=== PATIENT | female | born 1985 | race African-American/Black ===

== ENCOUNTER 2017-04-14 08:03 | Inpatient (IN) | payer MEDICAID, OTHER ==
[2017-04-14] VITALS (8 sets, daily range): BP systolic 123–166; BP diastolic 65–107
[~2017-04-14] VITALS: Ht 157.5 cm; Wt 140.6 kg
[2017-04-14] MEDS ORDERED: ASPIRIN 81MG TABLET PO ONE (09:30)
[2017-04-14] MEDS ORDERED: NITROGLYCERIN OINT 1GM/INCH UDPKT TD ONE (09:30)
[2017-04-14 09:54] LABS: BASOPHILS % 0.3 % (0.0-2.0); HEMATOCRIT. 35.9 % (36.0-48.0); HEMOGLOBIN. 11.6 g/dL (12.0-16.0); LYMPHOCYTES % 21.6 % (20.0-50.0); MEAN CORPUSCULAR HEMOGLOBIN 26.1 pg (28.0-32.0); MEAN CORPUSCULAR VOLUME 80.7 fL (81.0-99.0); MONOCYTES % 5.8 % (2.0-8.0); NEUTROPHILS % 71.3 % (40.0-76.0); PLATELET 283 x1000/uL (130-400); RED BLOOD CELL COUNT 4.45 mill/uL (4.2-5.4); RED CELL DISTRIBUTION WIDTH 14.2 % (11.6-14.6)
[2017-04-14 10:02] LABS: PROTHROMBIN TIME 10.8 sec (9.4-11.6)
[2017-04-14 10:08] LABS: HCG SCREEN NEGATIVE
[2017-04-14 10:11] LABS: CARBON DIOXIDE 24 mEq/L (21-32); CHLORIDE 107 mEq/L (98-107); TROPONIN I 0.05 ng/mL (0.00-0.04)
[2017-04-14] MEDS ORDERED: SODIUM CHLORIDE 0.9% 1,000 ML IV ONE (10:30)
[2017-04-14] MEDS ORDERED: IODIXANOL 320MG/ML 100 ML BOTTLE IV ONE (10:58)
[2017-04-14] MEDS ORDERED: LIDOCAINE HCL 1% 20ML VIAL (Pyxis) INJ ONE (10:58)
[2017-04-14] MEDS ORDERED: MIDAZOLAM HCL 2 MG/2 ML VIAL ONE ×2 (11:11→12:01)
[2017-04-14] MEDS ORDERED: FENTANYL CITRATE/PF 50MCG/ML 2ML VIAL ONE (11:12)
[2017-04-14] MEDS ORDERED: IPRATROPIUM/ALBUTEROL 0.5-3(2.5)MG/3ML NEB INH PRN (11:15)
[2017-04-14] MEDS ORDERED: ONDANSETRON HCL 4MG/2ML VIAL IV PRN (11:15)
[2017-04-14] MEDS ORDERED: FUROSEMIDE 40MG/4ML VIAL ONE (11:49)
[2017-04-14] MEDS ORDERED: ATROPINE SULFATE 1MG/10ML SYR IV PRN (12:15)
[2017-04-14] MEDS ORDERED: ACETAMINOPHEN 325MG TABLET PO PRN (12:15)
[2017-04-14] MEDS ORDERED: NITROGLYCERIN 50MCG/ML 10ML VIAL (CATH LAB) IV ONE (14:38)
[2017-04-14] MEDS ORDERED: NICARDIPINE 100MCG/ML 10ML VIAL (CATH LAB) IV ONE (14:38)
[2017-04-14] MEDS ORDERED: HEPARIN SODIUM 1,000 UNIT/1ML VIAL IV ONE (14:38)
[2017-04-14 15:07] LABS: CLARITY URINE CLEAR (CLEAR); COLOR URINE YELLOW (YELLOW); GLUCOSE URINE NEGATIVE (NEGATIVE); KETONES URINE NEGATIVE (NEGATIVE); LEUKOCYTE ESTERASE URINE NEGATIVE (NEGATIVE); NITRITE URINE NEGATIVE (NEGATIVE); OCCULT BLOOD URINE 2+ (NEGATIVE); PH URINE 5.5 (4.5-8.0); PROTEIN URINE 4+ (NEGATIVE); UROBILINOGEN URINE 0.2 E.U./dL (0.2-1.0)
[2017-04-14 15:56] LABS: *AMPHETAMINES SCREEN URINE NEGATIVE (NEGATIVE); *BARBITURATES SCREEN URINE NEGATIVE (NEGATIVE); *BENZODIAZEPINES SCREEN URINE NEGATIVE (NEGATIVE); *COCAINE SCREEN URINE NEGATIVE (NEGATIVE); CANNABINOID URINE SCREEN NEGATIVE (NEGATIVE); METHADONE URINE SCREEN NEGATIVE (NEGATIVE); OPIATES URINE SCREEN NEGATIVE (NEGATIVE); PHENCYCLIDINE URINE SCREEN NEGATIVE (NEGATIVE)
[2017-04-14] MEDS ORDERED: CLONIDINE 0.1MG TABLET PO PRN (16:45)
[2017-04-14] MEDS ORDERED: CLONIDINE 0.1MG TABLET PO NR (16:45)
[2017-04-14 16:58] LABS: CREATINE KINASE MB FRACTION 2.3 ng/mL (0.5-3.6)
[2017-04-14] MEDS: ENTRESTO PO SCH (17:31)
[2017-04-14] MEDS: SODIUM CHLORIDE 0.45% 1,000 ML IV SCH (17:32)
[2017-04-14] MEDS ORDERED: ATORVASTATIN CALCIUM 20MG TABLET PO SCH (21:00)
[2017-04-14] MEDS: CARVEDILOL 25MG TABLET PO SCH (21:05)
[2017-04-15] VITALS (8 sets, daily range): BP systolic 116–137; BP diastolic 73–96
[2017-04-15] MEDS: SODIUM CHLORIDE 0.45% 1,000 ML IV SCH ×2 (00:32→06:12)
[2017-04-15 01:26] LABS: CREATINE KINASE MB FRACTION 2.6 ng/mL (0.5-3.6)
[2017-04-15] MEDS ORDERED: GLIPIZIDE 5MG TABLET PO SCH (06:50)
[2017-04-15 06:55] LABS: BASOPHILS % 0.3 % (0.0-2.0); EOSINOPHILS % 1.7 % (0.0-5.0); HEMATOCRIT. 36.1 % (36.0-48.0); HEMOGLOBIN. 11.5 g/dL (12.0-16.0); LYMPHOCYTES % 20.9 % (20.0-50.0); MEAN CORPUSCULAR VOLUME 81.3 fL (81.0-99.0); MEAN PLATELET VOLUME 9.7 fl (7.4-10.4); MONOCYTES % 7.7 % (2.0-8.0); NEUTROPHILS % 69.4 % (40.0-76.0); PLATELET 234 x1000/uL (130-400); RED BLOOD CELL COUNT 4.44 mill/uL (4.2-5.4); RED CELL DISTRIBUTION WIDTH 14.2 % (11.6-14.6)
[2017-04-15] MEDS ORDERED: FERROUS SULFATE 325MG TABLET PO SCH (07:20)
[2017-04-15] MEDS: CARVEDILOL 25MG TABLET PO SCH (08:42)
[2017-04-15] MEDS: ENTRESTO PO SCH (08:43)
[2017-04-15] MEDS ORDERED: LISINOPRIL 20MG TABLET PO SCH (09:00)
[2017-04-15] MEDS ORDERED: FUROSEMIDE 40MG/4ML VIAL IVP SCH (09:00)
[2017-04-15] MEDS ORDERED: ASPIRIN 81MG TABLET PO SCH (09:00)
[2017-04-16 15:09] LABS: ANTI-NUCLEAR ANTIBODIES DIRECT Negative (Negative)
[2017-04-17 06:11] LABS: COMPLEMENT C3 108 mg/dL (82-167)
== END 2017-04-15 16:35 | disposition home or self-care (01) | DRG 191 ==
LOC: ER 08:03 → ORIP 09:49 → EDBEDREQ 09:51 → 3WST 12:55
PROVIDERS: ADMIT Internal Medicine; ATTEND Internal Medicine
PROC: 4A023N7 Measurement of Cardiac Sampling and Pressure, Left Heart, Percutaneous Approach (ICD-10-PCS; principal; 2017-04-14)
PROC: B2111ZZ Fluoroscopy of Multiple Coronary Arteries using Low Osmolar Contrast (ICD-10-PCS; 2017-04-14)
DX: I25.110 Atherosclerotic heart disease of native coronary artery with unstable angina pectoris (principal); N17.0 Acute kidney failure with tubular necrosis; I13.2 Hypertensive heart and chronic kidney disease with heart failure and with stage 5 chronic kidney disease, or end stage renal disease; E46 Unspecified protein-calorie malnutrition; I42.0 Dilated cardiomyopathy; N18.6 End stage renal disease; E11.22 Type 2 diabetes mellitus with diabetic chronic kidney disease; Z68.43 Body mass index [BMI] 50.0-59.9, adult; E66.01 Morbid (severe) obesity due to excess calories; G35 Multiple sclerosis; I25.5 Ischemic cardiomyopathy; I50.40 Unspecified combined systolic (congestive) and diastolic (congestive) heart failure; E78.5 Hyperlipidemia, unspecified; K08.89 Other specified disorders of teeth and supporting structures; Z79.82 Long term (current) use of aspirin; Z86.32 Personal history of gestational diabetes; Z88.0 Allergy status to penicillin
CPT/HCPCS: 36415; 71010; 76770; 80048; 80053; 80061; 80305; 81001; 82550; 82553; 82570; 83735; 83880; 84156; 84443; 84484; 84703; 85025; 85610; 86038; 86160; 93005; 93306; 93458; 93970; 99285; A9505; C1769; C1887; C1893; J1644; J1940; J2250; J3010; J3490; J7030; Q9967

== ENCOUNTER 2018-08-31 09:22 | Inpatient (IN) | payer MEDICAID ==
[2018-08-31] VITALS (10 sets, daily range): BP systolic 156–178; BP diastolic 106–130
[~2018-08-31] VITALS: Ht 160 cm; Wt 167.4 kg
[2018-08-31 11:47] LABS: BASOPHILS % 0.6 % (0.0-2.0); EOSINOPHILS % 0.7 % (0.0-5.0); HEMATOCRIT. 42.2 % (36.0-48.0); HEMOGLOBIN. 13.6 g/dL (12.0-16.0); LYMPHOCYTES % 13.4 % (20.0-50.0); MEAN CORPUSCULAR HEMOGLOBIN 29.1 pg (28.0-32.0); MEAN CORPUSCULAR VOLUME 90.1 fL (81.0-99.0); MEAN PLATELET VOLUME 9.5 fl (7.4-10.4); MONOCYTES % 6.7 % (2.0-8.0); NEUTROPHILS % 78.6 % (40.0-76.0); PLATELET 229 x1000/uL (130-400); RED BLOOD CELL COUNT 4.69 mill/uL (4.2-5.4); RED CELL DISTRIBUTION WIDTH 16.5 % (11.6-14.6)
[2018-08-31 11:54] LABS: CHLORIDE 106 mEq/L (98-107)
[2018-08-31] MEDS ORDERED: CLINDAMYCIN 600 MG in DEXTROSE 5% WATER 50 ML IV SCH (12:00)
[2018-08-31 12:11] LABS: HCG SCREEN NEGATIVE
[2018-08-31 13:22] LABS: INR 1.1; PROTHROMBIN TIME 11.2 sec (9.1-11.1)
[2018-08-31] MEDS ORDERED: SODIUM BICARBONATE 4% (2.4MEQ) 5ML VIAL IV ONE (13:30)
[2018-08-31] MEDS ORDERED: LIDOCAINE HCL 1% 20ML VIAL (Pyxis) INJ ONE (13:30)
[2018-08-31] MEDS ORDERED: FENTANYL CITRATE/PF 50MCG/ML 2ML VIAL ONE (13:30)
[2018-08-31] MEDS ORDERED: MANNITOL 12.5G (25%) VIAL 50ML IV ONE (14:00)
[2018-08-31] MEDS ORDERED: DOCUSATE SODIUM 100MG CAPSULE PO PRN ×2 (14:30→20:15)
[2018-08-31] MEDS ORDERED: FENTANYL CITRATE/PF 50MCG/ML 2ML VIAL IV ONE (14:30)
[2018-08-31] MEDS ORDERED: ONDANSETRON HCL 4MG/2ML INJ IV PRN (14:30)
[2018-08-31 16:22] LABS: COLOR URINE YELLOW (YELLOW); KETONES URINE NEGATIVE (NEGATIVE); LEUKOCYTE ESTERASE URINE NEGATIVE (NEGATIVE); NITRITE URINE NEGATIVE (NEGATIVE); OCCULT BLOOD URINE 2+ (NEGATIVE); PROTEIN URINE 4+ (NEGATIVE); UROBILINOGEN URINE 0.2 E.U./dL (0.2-1.0)
[2018-08-31 16:24] LABS: CLARITY URINE SLIGHTLY HAZY (CLEAR)
[2018-08-31] MEDS ORDERED: CLONIDINE 0.1MG TABLET PO NR (23:00)
[2018-08-31] MEDS ORDERED: MAGNESIUM/ALUMINUM HYDROXIDE/SIMETHICONE 30ML UDC PO NR (23:00)
[2018-09-01] VITALS (10 sets, daily range): BP systolic 116–165; BP diastolic 59–116
[2018-09-01] MEDS ORDERED: DEXTROSE 50% WATER 50ML SYRINGE IV PRN (07:00)
[2018-09-01] MEDS ORDERED: GLIP5TAB12 PO (07:03)
[2018-09-01] MEDS ORDERED: SACU1TAB7 MT (07:03)
[2018-09-01 07:08] LABS: BASOPHILS % 0.5 % (0.0-2.0); HEMATOCRIT. 42.6 % (36.0-48.0); HEMOGLOBIN. 13.5 g/dL (12.0-16.0); LYMPHOCYTES % 16.6 % (20.0-50.0); MEAN CORPUSCULAR HEMOGLOBIN 28.8 pg (28.0-32.0); MEAN CORPUSCULAR VOLUME 90.8 fL (81.0-99.0); MEAN PLATELET VOLUME 9.4 fl (7.4-10.4); MONOCYTES % 8.8 % (2.0-8.0); NEUTROPHILS % 73.1 % (40.0-76.0); PLATELET 206 x1000/uL (130-400); RED CELL DISTRIBUTION WIDTH 16.7 % (11.6-14.6)
[2018-09-01] MEDS: BLOOD SUGAR DIAGNOSTIC STRIP TEST SCH ×3 (07:40→21:00)
[2018-09-01] MEDS ORDERED: COR25 PO (07:42)
[2018-09-01] MEDS ORDERED: MANNITOL 12.5G (25%) VIAL 50ML IV NR (08:00)
[2018-09-01 08:18] LABS: HEPATITIS B SURFACE ANTIGEN NEGATIVE
[2018-09-01] MEDS ORDERED: HEPARIN SODIUM 1,000 UNIT/1ML VIAL IV SCH (08:45)
[2018-09-01] MEDS: FOLIC ACID/VITAMIN B COMP W-C TABLET PO SCH (08:51)
[2018-09-01] MEDS: AMLODIPINE 5MG TABLET PO SCH (08:51)
[2018-09-01] MEDS: CARVEDILOL 25MG TABLET PO SCH ×2 (08:52→20:12)
[2018-09-01] MEDS: INSULIN LISPRO 100 UNITS/ML SUBCUT SCH ×3 (08:54→21:08)
[2018-09-01 10:31] LABS: PHOSPHORUS 3.6 mg/dL (2.5-4.9)
[2018-09-01] MEDS ORDERED: HEPARIN SODIUM 1,000 UNIT/1ML VIAL IV ONE (14:10)
[2018-09-01] MEDS ORDERED: LIDOCAINE HCL 1% 20ML VIAL (Pyxis) INJ ONE (14:20)
[2018-09-01] MEDS ORDERED: IODIXANOL 320MG/ML 200ML BOTTLE ONE (14:21)
[2018-09-01] MEDS ORDERED: MIDAZOLAM HCL 2 MG/2 ML VIAL ONE (14:49)
[2018-09-01] MEDS ORDERED: FENTANYL CITRATE/PF 50MCG/ML 2ML VIAL ONE (14:49)
[2018-09-01] MEDS ORDERED: IOHEXOL-300 100 ML BOTTLE ONE (15:10)
[2018-09-01 15:43] LABS: HEPATITIS B SURFACE AB < 3.1 mIU/mL
[2018-09-01] MEDS ORDERED: ACETAMINOPHEN 325MG TABLET PO PRN (15:45)
[2018-09-01] MEDS ORDERED: ONDANSETRON HCL 4MG/2ML INJ IV PRN (15:45)
[2018-09-01] MEDS ORDERED: ATROPINE SULFATE 1MG/10ML SYR IV PRN (15:45)
[2018-09-01 15:53] LABS: HEPATITIS B SURFACE ANTIGEN NEGATIVE
[2018-09-01 16:21] LABS: HEPATITIS A AB IGM NEGATIVE (NEGATIVE)
[2018-09-01] MEDS ORDERED: NIFEDIPINE XL 60MG TAB PO SCH (21:00)
[2018-09-02] VITALS (12 sets, daily range): BP systolic 114–149; BP diastolic 64–96
[2018-09-02] MEDS: BLOOD SUGAR DIAGNOSTIC STRIP TEST SCH ×4 (06:10→21:00)
[2018-09-02] MEDS: INSULIN LISPRO 100 UNITS/ML SUBCUT SCH ×4 (06:20→21:00)
[2018-09-02] MEDS ORDERED: MANNITOL 12.5G (25%) VIAL 50ML IV SCH (08:00)
[2018-09-02] MEDS ORDERED: ISOSORB DINIT/HYDRALAZINE HCL 20/37.5MG TABLET PO SCH (09:15)
[2018-09-02] MEDS: FOLIC ACID/VITAMIN B COMP W-C TABLET PO SCH (09:22)
[2018-09-02] MEDS: CARVEDILOL 25MG TABLET PO SCH ×2 (09:22→21:58)
[2018-09-02] MEDS: AMLODIPINE 5MG TABLET PO SCH (09:22)
[2018-09-02 10:27] LABS: BASOPHILS % 0.5 % (0.0-2.0); HEMATOCRIT. 38.8 % (36.0-48.0); HEMOGLOBIN. 12.5 g/dL (12.0-16.0); MEAN PLATELET VOLUME 9.1 fl (7.4-10.4); MONOCYTES % 7.5 % (2.0-8.0); PLATELET 166 x1000/uL (130-400); RED BLOOD CELL COUNT 4.31 mill/uL (4.2-5.4); RED CELL DISTRIBUTION WIDTH 16.5 % (11.6-14.6)
[2018-09-02] MEDS: ISOSORB DINIT/HYDRALAZINE HCL 20/37.5MG TABLET PO SCH ×2 (14:00→21:58)
[2018-09-03] VITALS (12 sets, daily range): BP systolic 106–154; BP diastolic 68–115
[2018-09-03] MEDS: ISOSORB DINIT/HYDRALAZINE HCL 20/37.5MG TABLET PO SCH ×3 (06:07→22:38)
[2018-09-03] MEDS: BLOOD SUGAR DIAGNOSTIC STRIP TEST SCH ×4 (06:08→21:03)
[2018-09-03] MEDS: INSULIN LISPRO 100 UNITS/ML SUBCUT SCH ×4 (06:23→21:19)
[2018-09-03 07:48] LABS: BASOPHILS % 0.6 % (0.0-2.0); EOSINOPHILS % 1.6 % (0.0-5.0); HEMATOCRIT. 38.5 % (36.0-48.0); HEMOGLOBIN. 12.3 g/dL (12.0-16.0); MEAN CORPUSCULAR HEMOGLOBIN 28.7 pg (28.0-32.0); MEAN CORPUSCULAR VOLUME 89.6 fL (81.0-99.0); MONOCYTES % 9.3 % (2.0-8.0); NEUTROPHILS % 72.5 % (40.0-76.0); PLATELET 179 x1000/uL (130-400); RED CELL DISTRIBUTION WIDTH 16.2 % (11.6-14.6)
[2018-09-03] MEDS: AMLODIPINE 5MG TABLET PO SCH ×2 (09:00→21:22)
[2018-09-03] MEDS: CARVEDILOL 25MG TABLET PO SCH ×2 (09:00→21:23)
[2018-09-03] MEDS: FOLIC ACID/VITAMIN B COMP W-C TABLET PO SCH (09:16)
[2018-09-03] MEDS ORDERED: HEPARIN SODIUM 1,000 UNIT/1ML VIAL IV SCH (15:45)
[2018-09-03] MEDS ORDERED: HEPARIN SODIUM 1,000 UNIT/1ML VIAL IV NR (17:15)
[2018-09-04] VITALS (12 sets, daily range): BP systolic 119–150; BP diastolic 52–104
[2018-09-04] MEDS: ISOSORB DINIT/HYDRALAZINE HCL 20/37.5MG TABLET PO SCH ×3 (06:23→22:25)
[2018-09-04] MEDS: BLOOD SUGAR DIAGNOSTIC STRIP TEST SCH ×4 (07:03→21:13)
[2018-09-04 07:07] LABS: BASOPHILS % 0.5 % (0.0-2.0); EOSINOPHILS % 1.3 % (0.0-5.0); HEMATOCRIT. 38.9 % (36.0-48.0); HEMOGLOBIN. 12.4 g/dL (12.0-16.0); LYMPHOCYTES % 15.2 % (20.0-50.0); MEAN CORPUSCULAR HEMOGLOBIN 28.5 pg (28.0-32.0); MEAN CORPUSCULAR VOLUME 89.4 fL (81.0-99.0); MEAN PLATELET VOLUME 9.2 fl (7.4-10.4); MONOCYTES % 11.4 % (2.0-8.0); NEUTROPHILS % 71.6 % (40.0-76.0); PLATELET 176 x1000/uL (130-400); RED BLOOD CELL COUNT 4.36 mill/uL (4.2-5.4); RED CELL DISTRIBUTION WIDTH 16.3 % (11.6-14.6)
[2018-09-04] MEDS: INSULIN LISPRO 100 UNITS/ML SUBCUT SCH ×4 (07:20→21:20)
[2018-09-04] MEDS: FOLIC ACID/VITAMIN B COMP W-C TABLET PO SCH (08:33)
[2018-09-04] MEDS: AMLODIPINE 5MG TABLET PO SCH ×2 (08:34→21:22)
[2018-09-04] MEDS: CARVEDILOL 25MG TABLET PO SCH ×2 (08:34→21:22)
[2018-09-05] VITALS (8 sets, daily range): BP systolic 115–147; BP diastolic 63–100
[2018-09-05] MEDS: ISOSORB DINIT/HYDRALAZINE HCL 20/37.5MG TABLET PO SCH ×3 (06:33→21:24)
[2018-09-05 06:49] LABS: BASOPHILS % 0.5 % (0.0-2.0); EOSINOPHILS % 1.4 % (0.0-5.0); HEMATOCRIT. 38.3 % (36.0-48.0); HEMOGLOBIN. 12.3 g/dL (12.0-16.0); LYMPHOCYTES % 14.6 % (20.0-50.0); MEAN CORPUSCULAR HEMOGLOBIN 28.7 pg (28.0-32.0); MEAN CORPUSCULAR VOLUME 89.4 fL (81.0-99.0); MEAN PLATELET VOLUME 9.2 fl (7.4-10.4); MONOCYTES % 9.7 % (2.0-8.0); NEUTROPHILS % 73.8 % (40.0-76.0); PLATELET 181 x1000/uL (130-400); RED BLOOD CELL COUNT 4.29 mill/uL (4.2-5.4); RED CELL DISTRIBUTION WIDTH 16.1 % (11.6-14.6)
[2018-09-05] MEDS: BLOOD SUGAR DIAGNOSTIC STRIP TEST SCH ×4 (07:09→21:00)
[2018-09-05] MEDS: FOLIC ACID/VITAMIN B COMP W-C TABLET PO SCH (08:39)
[2018-09-05] MEDS: AMLODIPINE 5MG TABLET PO SCH ×2 (08:40→21:24)
[2018-09-05] MEDS: CARVEDILOL 25MG TABLET PO SCH ×2 (08:40→21:25)
[2018-09-05] MEDS: INSULIN LISPRO 100 UNITS/ML SUBCUT SCH ×4 (08:40→21:39)
[2018-09-05] MEDS ORDERED: HEPARIN SODIUM 1,000 UNIT/1ML VIAL IV NR (18:30)
[2018-09-06] VITALS (10 sets, daily range): BP systolic 107–133; BP diastolic 57–86
[2018-09-06] MEDS: ISOSORB DINIT/HYDRALAZINE HCL 20/37.5MG TABLET PO SCH ×3 (06:04→21:12)
[2018-09-06] MEDS: BLOOD SUGAR DIAGNOSTIC STRIP TEST SCH ×4 (06:35→21:00)
[2018-09-06 07:06] LABS: BASOPHILS % 0.6 % (0.0-2.0); EOSINOPHILS % 1.5 % (0.0-5.0); HEMATOCRIT. 38.9 % (36.0-48.0); HEMOGLOBIN. 12.5 g/dL (12.0-16.0); LYMPHOCYTES % 14.5 % (20.0-50.0); MEAN CORPUSCULAR VOLUME 90.2 fL (81.0-99.0); MONOCYTES % 9.6 % (2.0-8.0); NEUTROPHILS % 73.8 % (40.0-76.0); PLATELET 135 x1000/uL (130-400); RED BLOOD CELL COUNT 4.31 mill/uL (4.2-5.4); RED CELL DISTRIBUTION WIDTH 16.2 % (11.6-14.6)
[2018-09-06] MEDS: INSULIN LISPRO 100 UNITS/ML SUBCUT SCH ×4 (07:20→21:00)
[2018-09-06] MEDS: FOLIC ACID/VITAMIN B COMP W-C TABLET PO SCH (08:22)
[2018-09-06] MEDS: AMLODIPINE 5MG TABLET PO SCH (08:22)
[2018-09-06] MEDS: CARVEDILOL 25MG TABLET PO SCH ×2 (08:23→21:12)
[2018-09-07] VITALS (8 sets, daily range): BP systolic 115–133; BP diastolic 73–90
[2018-09-07] MEDS: BLOOD SUGAR DIAGNOSTIC STRIP TEST SCH ×2 (06:10→12:45)
[2018-09-07] MEDS: ISOSORB DINIT/HYDRALAZINE HCL 20/37.5MG TABLET PO SCH (06:10)
[2018-09-07] MEDS: INSULIN LISPRO 100 UNITS/ML SUBCUT SCH ×2 (07:20→12:20)
[2018-09-07] MEDS ORDERED: AMLODIPINE 5MG TABLET PO SCH (09:00)
[2018-09-07] MEDS: CARVEDILOL 25MG TABLET PO SCH (09:00)
[2018-09-07] MEDS: FOLIC ACID/VITAMIN B COMP W-C TABLET PO SCH (09:00)
== END 2018-09-07 13:45 | disposition home or self-care (01) | DRG 192 ==
LOC: ER 09:22 → 7WST 12:44 → EDBEDREQ 12:47 → ENRESERV 21:07 → 3WST 09-01 15:50
PROVIDERS: ADMIT Internal Medicine; ATTEND Internal Medicine
PROC: 02HV33Z Insertion of Infusion Device into Superior Vena Cava, Percutaneous Approach (ICD-10-PCS; 2018-08-31)
PROC: B548ZZA Ultrasonography of Superior Vena Cava, Guidance (ICD-10-PCS; 2018-08-31)
PROC: B5181ZA Fluoroscopy of Superior Vena Cava using Low Osmolar Contrast, Guidance (ICD-10-PCS; 2018-08-31)
PROC: 5A1D70Z Performance of Urinary Filtration, Intermittent, Less than 6 Hours Per Day (ICD-10-PCS; 2018-08-31)
PROC: 4A023N7 Measurement of Cardiac Sampling and Pressure, Left Heart, Percutaneous Approach (ICD-10-PCS; principal; 2018-09-01)
PROC: B2111ZZ Fluoroscopy of Multiple Coronary Arteries using Low Osmolar Contrast (ICD-10-PCS; 2018-09-01)
PROC: 5A1D70Z Performance of Urinary Filtration, Intermittent, Less than 6 Hours Per Day (ICD-10-PCS; 2018-09-01)
PROC: 5A1D70Z Performance of Urinary Filtration, Intermittent, Less than 6 Hours Per Day (ICD-10-PCS; 2018-09-02)
PROC: 5A1D70Z Performance of Urinary Filtration, Intermittent, Less than 6 Hours Per Day (ICD-10-PCS; 2018-09-05)
PROC: 5A1D70Z Performance of Urinary Filtration, Intermittent, Less than 6 Hours Per Day (ICD-10-PCS; 2018-09-07)
DX: I13.2 Hypertensive heart and chronic kidney disease with heart failure and with stage 5 chronic kidney disease, or end stage renal disease (principal); N17.0 Acute kidney failure with tubular necrosis; E46 Unspecified protein-calorie malnutrition; I25.82 Chronic total occlusion of coronary artery; E66.01 Morbid (severe) obesity due to excess calories; E11.22 Type 2 diabetes mellitus with diabetic chronic kidney disease; I27.20 Pulmonary hypertension, unspecified; E87.5 Hyperkalemia; I50.43 Acute on chronic combined systolic (congestive) and diastolic (congestive) heart failure; I42.0 Dilated cardiomyopathy; K74.60 Unspecified cirrhosis of liver; I25.10 Atherosclerotic heart disease of native coronary artery without angina pectoris; E78.5 Hyperlipidemia, unspecified; N18.6 End stage renal disease; I25.5 Ischemic cardiomyopathy; Z68.44 Body mass index [BMI] 60.0-69.9, adult; Z99.2 Dependence on renal dialysis; Z82.49 Family history of ischemic heart disease and other diseases of the circulatory system; Z83.3 Family history of diabetes mellitus; Z95.810 Presence of automatic (implantable) cardiac defibrillator; Z98.891 History of uterine scar from previous surgery; Z88.0 Allergy status to penicillin
CPT/HCPCS: 36415; 36558; 71045; 76705; 76937; 77001; 80048; 80061; 82962; 83036; 83970; 84100; 84484; 84703; 86705; 86706; 86709; 86803; 87340; 93005; 93306; 93458; 93970; 96365; 96366; 96375; 99152; 99153; 99291; C1750; C1769; C1887; C1893; J1642; J1644; J1815; J2150; J2250; J3010; J3490; J7040; J7060; Q9967; G0500

== ENCOUNTER 2018-10-17 19:57 | Inpatient (IN) | payer MEDICAID ==
[~2018-10-17] VITALS: Ht 160 cm; Wt 147.9 kg
[~2018-10-17 19:57] MED LIST: COR25 PO; GLIP5TAB12 PO; SACU1TAB7 MT
[2018-10-18] VITALS (8 sets, daily range): BP systolic 104–134; BP diastolic 47–94
[2018-10-18] MEDS ORDERED: MORPHINE SULFATE 4 MG/ML CPJ (NOT FOR IM USE) IV STA (01:46)
[2018-10-18] MEDS ORDERED: ONDANSETRON HCL 4MG/2ML INJ IV STA (01:46)
[2018-10-18 02:10] LABS: BASOPHILS % 0.5 % (0.0-2.0); EOSINOPHILS % 1.1 % (0.0-5.0); HEMATOCRIT. 34.3 % (36.0-48.0); HEMOGLOBIN. 11.3 g/dL (12.0-16.0); LYMPHOCYTES % 13.2 % (20.0-50.0); MEAN CORPUSCULAR HEMOGLOBIN 29.1 pg (28.0-32.0); MEAN CORPUSCULAR VOLUME 88.5 fL (81.0-99.0); MEAN PLATELET VOLUME 10.5 fl (7.4-10.4); MONOCYTES % 5.1 % (2.0-8.0); NEUTROPHILS % 80.1 % (40.0-76.0); PLATELET 315 x1000/uL (130-400); RED BLOOD CELL COUNT 3.88 mill/uL (4.2-5.4); RED CELL DISTRIBUTION WIDTH 14.2 % (11.6-14.6)
[2018-10-18 02:13] LABS: CHLORIDE 103 mEq/L (98-107); INR 1.1; PROTHROMBIN TIME 11.4 sec (9.6-11.0)
[2018-10-18] MEDS ORDERED: ENOXAPARIN 80MG/0.8ML SYR SUBCUT NR (03:30)
[2018-10-18] MEDS ORDERED: ASPIRIN 81MG TABLET PO ONE (08:15)
[2018-10-18] MEDS ORDERED: DILTIAZEM HCL 5MG/ML 5ML VIAL IV ONE (08:15)
[2018-10-18] MEDS ORDERED: CARVEDILOL 25MG TABLET PO ONE (08:15)
[2018-10-18 11:50] LABS: CLARITY URINE CLOUDY (CLEAR); COLOR URINE DARK YELLOW (YELLOW); KETONES URINE NEGATIVE (NEGATIVE); LEUKOCYTE ESTERASE URINE TRACE (NEGATIVE); NITRITE URINE NEGATIVE (NEGATIVE); OCCULT BLOOD URINE 1+ (NEGATIVE); PROTEIN URINE 4+ (NEGATIVE); SPECIFIC GRAVITY URINE 1.025 (1.005-1.030)
[2018-10-18] MEDS: ISOSORB DINIT/HYDRALAZINE HCL 20/37.5MG TABLET PO SCH ×2 (14:00→22:00)
[2018-10-18] MEDS ORDERED: ENOXAPARIN 150MG/ML SYR SUBCUT NR (17:00)
[2018-10-18] MEDS ORDERED: HYDROCODONE/ACETAMINOPHEN 5/325MG TABLET PO PRN (20:45)
[2018-10-18] MEDS ORDERED: DEXTROSE 50% WATER 50ML SYRINGE IV PRN (20:45)
[2018-10-18] MEDS: BLOOD SUGAR DIAGNOSTIC STRIP TEST SCH (20:58)
[2018-10-18] MEDS: CARVEDILOL 25MG TABLET PO SCH (21:17)
[2018-10-18] MEDS: ATORVASTATIN CALCIUM 20MG TABLET PO SCH (21:17)
[2018-10-18] MEDS: INSULIN LISPRO 100 UNITS/ML SUBCUT SCH (21:24)
[2018-10-18] MEDS ORDERED: MORPHINE SULFATE 4 MG/ML CPJ (NOT FOR IM USE) IV NR (23:00)
[2018-10-19] VITALS (16 sets, daily range): BP systolic 103–123; BP diastolic 48–83
[2018-10-19] MEDS ORDERED: DILTIAZEM HCL 125 MG in DEXT 5% WATER 100 ML IV PRN (00:30)
[2018-10-19] MEDS: ISOSORB DINIT/HYDRALAZINE HCL 20/37.5MG TABLET PO SCH ×3 (06:00→21:12)
[2018-10-19] MEDS: BLOOD SUGAR DIAGNOSTIC STRIP TEST SCH ×4 (06:11→20:52)
[2018-10-19 06:14] LABS: BASOPHILS % 0.3 % (0.0-2.0); EOSINOPHILS % 0.8 % (0.0-5.0); HEMOGLOBIN. 11.4 g/dL (12.0-16.0); LYMPHOCYTES % 17.1 % (20.0-50.0); MEAN CORPUSCULAR HEMOGLOBIN 29.1 pg (28.0-32.0); MEAN PLATELET VOLUME 9.4 fl (7.4-10.4); MONOCYTES % 7.2 % (2.0-8.0); NEUTROPHILS % 74.6 % (40.0-76.0); PLATELET 241 x1000/uL (130-400); RED BLOOD CELL COUNT 3.93 mill/uL (4.2-5.4); RED CELL DISTRIBUTION WIDTH 13.9 % (11.6-14.6)
[2018-10-19] MEDS: INSULIN LISPRO 100 UNITS/ML SUBCUT SCH ×4 (07:20→20:57)
[2018-10-19 07:21] LABS: PHOSPHORUS 4.5 mg/dL (2.5-4.9)
[2018-10-19] MEDS ORDERED: IOHEXOL-300 100 ML BOTTLE ONE (07:42)
[2018-10-19] MEDS ORDERED: LIDOCAINE HCL 1% 20ML VIAL (Pyxis) INJ ONE (07:43)
[2018-10-19] MEDS ORDERED: IODIXANOL 320MG/ML 100 ML BOTTLE IV ONE (07:43)
[2018-10-19] MEDS: ASPIRIN 81MG EC TABLET PO SCH (07:54)
[2018-10-19] MEDS ORDERED: MIDAZOLAM HCL 2 MG/2 ML VIAL ONE (08:34)
[2018-10-19] MEDS ORDERED: FENTANYL CITRATE/PF 50MCG/ML 2ML VIAL ONE (08:35)
[2018-10-19] MEDS: CARVEDILOL 25MG TABLET PO SCH ×2 (09:00→21:11)
[2018-10-19] MEDS ORDERED: IBUTILIDE FUMARATE 0.1MG/ML 10ML VIAL IV ONE ×2 (09:27→09:45)
[2018-10-19] MEDS ORDERED: ASPIRIN 325MG TABLET ONE (09:57)
[2018-10-19] MEDS ORDERED: CLOPIDOGREL 75MG TABLET ONE (09:57)
[2018-10-19] MEDS ORDERED: ATROPINE SULFATE 1MG/10ML SYR IV PRN (10:30)
[2018-10-19] MEDS ORDERED: ONDANSETRON HCL 4MG/2ML INJ IV PRN (10:30)
[2018-10-19] MEDS ORDERED: ACETAMINOPHEN 325MG TABLET PO PRN (10:30)
[2018-10-19] MEDS ORDERED: HEPARIN SODIUM 1,000 UNIT/1ML VIAL IV ONE (10:40)
[2018-10-19] MEDS ORDERED: NITROGLYCERIN 50MCG/ML 10ML VIAL (CATH LAB) IV ONE (10:40)
[2018-10-19] MEDS ORDERED: NICARDIPINE 100MCG/ML 10ML VIAL (CATH LAB) IV ONE (10:40)
[2018-10-19] MEDS: FOLIC ACID/VITAMIN B COMP W-C TABLET PO SCH (11:52)
[2018-10-19] MEDS ORDERED: GENTAMICIN 120MG PREMIX 100 ML IV NR (13:00)
[2018-10-19] MEDS: ATORVASTATIN CALCIUM 20MG TABLET PO SCH (21:11)
[2018-10-20] VITALS (10 sets, daily range): BP systolic 96–135; BP diastolic 67–109
[2018-10-20 06:39] LABS: BASOPHILS % 0.5 % (0.0-2.0); EOSINOPHILS % 1.4 % (0.0-5.0); HEMATOCRIT. 32.7 % (36.0-48.0); HEMOGLOBIN. 10.6 g/dL (12.0-16.0); LYMPHOCYTES % 14.7 % (20.0-50.0); MEAN CORPUSCULAR HEMOGLOBIN 28.7 pg (28.0-32.0); MEAN CORPUSCULAR VOLUME 88.7 fL (81.0-99.0); MEAN PLATELET VOLUME 9.4 fl (7.4-10.4); MONOCYTES % 7.8 % (2.0-8.0); NEUTROPHILS % 75.6 % (40.0-76.0); PLATELET 234 x1000/uL (130-400); RED BLOOD CELL COUNT 3.68 mill/uL (4.2-5.4); RED CELL DISTRIBUTION WIDTH 13.7 % (11.6-14.6)
[2018-10-20] MEDS: ISOSORB DINIT/HYDRALAZINE HCL 20/37.5MG TABLET PO SCH ×3 (06:40→13:51)
[2018-10-20] MEDS: BLOOD SUGAR DIAGNOSTIC STRIP TEST SCH ×2 (06:46→12:01)
[2018-10-20] MEDS: INSULIN LISPRO 100 UNITS/ML SUBCUT SCH ×2 (07:20→12:07)
[2018-10-20] MEDS: CARVEDILOL 25MG TABLET PO SCH (08:22)
[2018-10-20] MEDS: FOLIC ACID/VITAMIN B COMP W-C TABLET PO SCH (08:22)
[2018-10-20] MEDS: ASPIRIN 81MG EC TABLET PO SCH (08:23)
[2018-10-20] MEDS ORDERED: ASPIRIN 325MG TABLET PO SCH (09:00)
[2018-10-20] MEDS ORDERED: CLOPIDOGREL 75MG TABLET PO SCH (09:00)
== END 2018-10-20 15:48 | disposition home or self-care (01) | DRG 174 ==
LOC: ER 19:57 → 3WST 10-18 03:25 → EDBEDREQSVC 10-18 03:32 → EDBEDREQ 10-18 03:32 → EDBEDREQTM 10-18 03:32 → EDBEDREQ 10-18 03:33 → ENRESERV 10-18 10:30
PROVIDERS: ADMIT Internal Medicine; ATTEND Internal Medicine
PROC: 5A1D70Z Performance of Urinary Filtration, Intermittent, Less than 6 Hours Per Day (ICD-10-PCS; 2018-10-18)
PROC: 4A023N7 Measurement of Cardiac Sampling and Pressure, Left Heart, Percutaneous Approach (ICD-10-PCS; principal; 2018-10-19)
PROC: 027034Z Dilation of Coronary Artery, One Artery with Drug-eluting Intraluminal Device, Percutaneous Approach (ICD-10-PCS; 2018-10-19)
PROC: B2111ZZ Fluoroscopy of Multiple Coronary Arteries using Low Osmolar Contrast (ICD-10-PCS; 2018-10-19)
PROC: 5A1D70Z Performance of Urinary Filtration, Intermittent, Less than 6 Hours Per Day (ICD-10-PCS; 2018-10-19)
DX: I21.4 Non-ST elevation (NSTEMI) myocardial infarction (principal); I13.2 Hypertensive heart and chronic kidney disease with heart failure and with stage 5 chronic kidney disease, or end stage renal disease; E11.21 Type 2 diabetes mellitus with diabetic nephropathy; E46 Unspecified protein-calorie malnutrition; E11.22 Type 2 diabetes mellitus with diabetic chronic kidney disease; E66.01 Morbid (severe) obesity due to excess calories; I45.89 Other specified conduction disorders; I27.20 Pulmonary hypertension, unspecified; N18.6 End stage renal disease; I48.92 Unspecified atrial flutter; I25.10 Atherosclerotic heart disease of native coronary artery without angina pectoris; E87.5 Hyperkalemia; K74.60 Unspecified cirrhosis of liver; I25.5 Ischemic cardiomyopathy; I50.22 Chronic systolic (congestive) heart failure; G47.33 Obstructive sleep apnea (adult) (pediatric); E78.5 Hyperlipidemia, unspecified; I42.0 Dilated cardiomyopathy; I47.1 Supraventricular tachycardia; Z79.82 Long term (current) use of aspirin; Z79.84 Long term (current) use of oral hypoglycemic drugs; I25.2 Old myocardial infarction; Z68.43 Body mass index [BMI] 50.0-59.9, adult; Z99.2 Dependence on renal dialysis; Z95.5 Presence of coronary angioplasty implant and graft; Z88.0 Allergy status to penicillin; Z79.899 Other long term (current) drug therapy; Z83.3 Family history of diabetes mellitus; Z82.49 Family history of ischemic heart disease and other diseases of the circulatory system
CPT/HCPCS: 36415; 71045; 80048; 82962; 83605; 83735; 83880; 84100; 84484; 84702; 85347; 92928; 93005; 93458; 96372; 96374; 96375; 99291; C1769; C1874; C1887; C1893; J1580; J1644; J1650; J1742; J1815; J2250; J2270; J2405; J3010; J3490; J7050; Q9967

== ENCOUNTER 2019-11-24 01:37 | Inpatient (IN) | payer MEDICARE, MEDICAID ==
[~2019-11-24] VITALS: Ht 160 cm; Wt 139.8 kg
[2019-11-24] MEDS ORDERED: ASPIRIN 81MG TABLET PO ONE (02:30)
[2019-11-24] MEDS ORDERED: NITROGLYCERIN 0.4MG TABLET SL SL PRN (02:30)
[2019-11-24 03:41] LABS: BASOPHILS % 0.5 % (0.0-2.0); EOSINOPHILS % 1.2 % (0.0-5.0); HEMATOCRIT. 38.7 % (36.0-48.0); HEMOGLOBIN. 12.4 g/dL (12.0-16.0); LYMPHOCYTES % 11.9 % (20.0-50.0); MEAN CORPUSCULAR HEMOGLOBIN 28.2 pg (28.0-32.0); MEAN CORPUSCULAR VOLUME 87.8 fL (81.0-99.0); MONOCYTES % 5.2 % (2.0-8.0); NEUTROPHILS % 81.2 % (40.0-76.0); PLATELET 245 x1000/uL (130-400); RED CELL DISTRIBUTION WIDTH 16.6 % (11.6-14.6)
[2019-11-24 03:49] LABS: CHLORIDE 97 mEq/L (98-107)
[2019-11-24 03:59] LABS: CLARITY URINE CLOUDY (CLEAR); COLOR URINE YELLOW (YELLOW); KETONES URINE NEGATIVE (NEGATIVE); LEUKOCYTE ESTERASE URINE 3+ (NEGATIVE); NITRITE URINE NEGATIVE (NEGATIVE); OCCULT BLOOD URINE TRACE (NEGATIVE); PH URINE 8.5 (4.5-8.0); PROTEIN URINE 3+ (NEGATIVE); SPECIFIC GRAVITY URINE 1.016 (1.005-1.030); UROBILINOGEN URINE 0.2 E.U./dL (0.2-1.0)
[2019-11-24 04:03] LABS: PARTIAL THROMBOPLASTIN TIME 25.9 sec (23.4-31.0); PROTHROMBIN TIME 10.4 sec (9.6-11.0)
[2019-11-24] MEDS ORDERED: CEFTRIAXONE 1 G PREMIX 50 ML IV ONE (04:45)
[2019-11-24] MEDS ORDERED: ONDANSETRON HCL 4MG/2ML INJ IV PRN (08:45)
[2019-11-24] MEDS ORDERED: GUAIFENESIN 200MG/10ML SUGAR FREE UDC PO PRN (08:45)
[2019-11-24] MEDS ORDERED: LORAZEPAM 2MG/ML CPJ IV PRN (08:45)
[2019-11-24] MEDS ORDERED: MORPHINE SULFATE 2 MG/ML CPJ (NOT FOR IM USE) IV PRN (08:45)
[2019-11-24] MEDS ORDERED: DIPHENHYDRAMINE 50MG/ML VIAL IV PRN (08:45)
[2019-11-24] MEDS ORDERED: HYDROCODONE/ACETAMINOPHEN 5/325MG TABLET PO PRN (08:45)
[2019-11-24] MEDS ORDERED: MAGNESIUM/ALUMINUM HYDROXIDE/SIMETHICONE 30ML UDC PO PRN (08:45)
[2019-11-24] MEDS ORDERED: ACETAMINOPHEN 325MG TABLET PO PRN (08:45)
[2019-11-24] MEDS ORDERED: IPRATROPIUM/ALBUTEROL 0.5-3(2.5)MG/3ML NEB NEB PRN (08:45)
[2019-11-24] MEDS ORDERED: CLONIDINE 0.1MG TABLET PO PRN (08:45)
[2019-11-24] MEDS ORDERED: DOCUSATE SODIUM 100MG CAPSULE PO PRN (08:45)
[2019-11-24] MEDS ORDERED: NA PHOS,M-B/NA PHOS,DI-BA ENEMA 118ML PR PRN (09:00)
[2019-11-24 10:45] VITALS: BP 148/69
[2019-11-24 12:00] VITALS: BP 127/85
[2019-11-24] MEDS: ENOXAPARIN 40MG/0.4ML SYR SUBCUT SCH (13:09)
[2019-11-24] MEDS: CALCIUM ACETATE 667MG CAPSULE PO SCH ×2 (13:10→16:27)
[2019-11-24] MEDS: CLOPIDOGREL 75MG TABLET PO SCH (13:10)
[2019-11-24] MEDS: ASPIRIN 81MG EC TABLET PO SCH (13:10)
[2019-11-24] MEDS: LOSARTAN POTASSIUM 25 MG TABLET PO SCH (13:11)
[2019-11-24] MEDS ORDERED: DEXTROSE 50% WATER 50ML SYRINGE IV PRN ×2 (14:45)
[2019-11-24 15:20] LABS: BASOPHILS % 0.4 % (0.0-2.0); EOSINOPHILS % 0.9 % (0.0-5.0); HEMOGLOBIN. 12.8 g/dL (12.0-16.0); MEAN CORPUSCULAR HEMOGLOBIN 28.3 pg (28.0-32.0); MONOCYTES % 5.5 % (2.0-8.0); NEUTROPHILS % 78.2 % (40.0-76.0); PLATELET 262 x1000/uL (130-400); RED BLOOD CELL COUNT 4.54 mill/uL (4.2-5.4); RED CELL DISTRIBUTION WIDTH 16.4 % (11.6-14.6)
[2019-11-24] MEDS ORDERED: HEPARIN SODIUM 1,000 UNIT/1ML VIAL IV NR (15:30)
[2019-11-24 16:00] VITALS: BP 119/95
[2019-11-24] MEDS: BLOOD SUGAR DIAGNOSTIC STRIP TEST SCH ×2 (16:27→21:57)
[2019-11-24] MEDS: INSULIN LISPRO 100 UNITS/ML SUBCUT SCH ×2 (16:50→21:59)
[2019-11-24 21:03] VITALS: BP 104/65
[2019-11-24] MEDS: CARVEDILOL 3.125 MG TABLET PO SCH (21:57)
[2019-11-25 00:19] VITALS: BP 112/78
[2019-11-25 04:27] VITALS: BP 97/69
[2019-11-25] MEDS: BLOOD SUGAR DIAGNOSTIC STRIP TEST SCH (07:20)
[2019-11-25 07:26] LABS: CHLORIDE 102 mEq/L (98-107)
[2019-11-25 07:33] LABS: PHOSPHORUS 5.4 mg/dL (2.5-4.9)
[2019-11-25 07:34] LABS: LDL CHOLESTEROL 169 mg/dL (5-100)
[2019-11-25 07:36] LABS: HDL CHOLESTEROL 35 mg/dL (40-59); T4 FREE 1.18 ng/dL (0.76-1.46)
[2019-11-25] MEDS: INSULIN LISPRO 100 UNITS/ML SUBCUT SCH (07:50)
[2019-11-25 08:00] VITALS: BP 122/80
[2019-11-25] MEDS ORDERED: FOLIC ACID/VITAMIN B COMP W-C TABLET PO SCH (09:00)
[2019-11-25] MEDS: CLOPIDOGREL 75MG TABLET PO SCH (09:16)
[2019-11-25] MEDS: CARVEDILOL 3.125 MG TABLET PO SCH (09:16)
[2019-11-25] MEDS: CALCIUM ACETATE 667MG CAPSULE PO SCH (09:16)
[2019-11-25] MEDS: ASPIRIN 81MG EC TABLET PO SCH (09:16)
[2019-11-25] MEDS: LOSARTAN POTASSIUM 25 MG TABLET PO SCH (09:16)
[2019-11-25] MEDS: ENOXAPARIN 40MG/0.4ML SYR SUBCUT SCH (09:17)
[2019-11-25 09:24] LABS: BASOPHILS % 0.3 % (0.0-2.0); HEMATOCRIT. 40.3 % (36.0-48.0); HEMOGLOBIN. 13.2 g/dL (12.0-16.0); LYMPHOCYTES % 13.5 % (20.0-50.0); MEAN CORPUSCULAR HEMOGLOBIN 29.1 pg (28.0-32.0); MEAN CORPUSCULAR VOLUME 88.9 fL (81.0-99.0); MEAN PLATELET VOLUME 8.9 fl (7.4-10.4); MONOCYTES % 5.8 % (2.0-8.0); NEUTROPHILS % 79.4 % (40.0-76.0); PLATELET 260 x1000/uL (130-400); RED BLOOD CELL COUNT 4.53 mill/uL (4.2-5.4); RED CELL DISTRIBUTION WIDTH 16.8 % (11.6-14.6)
[2019-11-25 11:35] VITALS: BP 122/80
== END 2019-11-25 13:20 | disposition home or self-care (01) | DRG 391 ==
LOC: ER 01:37 → 6WST 04:54 → ENRESERV 07:46
PROVIDERS: ADMIT Internal Medicine; ATTEND Internal Medicine
PROC: 5A1D70Z Performance of Urinary Filtration, Intermittent, Less than 6 Hours Per Day (ICD-10-PCS; principal; 2019-11-24)
DX: K21.9 Gastro-esophageal reflux disease without esophagitis (principal); N18.6 End stage renal disease; I13.2 Hypertensive heart and chronic kidney disease with heart failure and with stage 5 chronic kidney disease, or end stage renal disease; E46 Unspecified protein-calorie malnutrition; Z68.43 Body mass index [BMI] 50.0-59.9, adult; E87.1 Hypo-osmolality and hyponatremia; N39.0 Urinary tract infection, site not specified; E11.22 Type 2 diabetes mellitus with diabetic chronic kidney disease; N28.9 Disorder of kidney and ureter, unspecified; I25.5 Ischemic cardiomyopathy; I25.10 Atherosclerotic heart disease of native coronary artery without angina pectoris; E66.01 Morbid (severe) obesity due to excess calories; E78.5 Hyperlipidemia, unspecified; D72.829 Elevated white blood cell count, unspecified; I50.9 Heart failure, unspecified; Z99.2 Dependence on renal dialysis; Z88.0 Allergy status to penicillin; Z79.899 Other long term (current) drug therapy; Z98.891 History of uterine scar from previous surgery; Z95.5 Presence of coronary angioplasty implant and graft; I25.2 Old myocardial infarction
CPT/HCPCS: 36415; 71045; 80048; 80053; 80061; 81003; 82962; 83735; 83880; 83970; 84100; 84439; 84443; 84484; 85025; 93005; 93306; 99285; J0696; J1644; J1650; J1815

== ENCOUNTER → 2020-10-09 | Outpatient (CLI) | payer MEDICARE, MEDICAID ==
[~2020-10-09] MED LIST changes: +ASPI-1406 PO; +CARV12.545 PO; +CLOP-31 PO; +FAMO-135 PO; +HYDR-4135 PO; +ISOS10TA53 PO; +ISOS1TAB PO; -SACU1TAB7 MT
== END | disposition home or self-care (01) ==
LOC: LAB 11:07
PROVIDERS: ATTEND Surgery Vascular Surgery
DX: N18.6 End stage renal disease (principal); Z20.822 Contact with and (suspected) exposure to COVID-19
CPT/HCPCS: 87426

== ENCOUNTER → 2020-10-10 | Day surgery (SDC) | payer MEDICARE, MEDICAID ==
[~2020-10-10] VITALS: Ht 160 cm; Wt 140.6 kg
[~2020-10-10] MED LIST changes: +BACITRACIN 15GM TUBE TOP ONE; +BACITRACIN 50,000 UNITS/VIAL ONE; +BUPIVACAINE HCL/PF 0.5% (5MG/ML) 10ML ONE; -CARV12.545 PO; +CEFAZOLIN SODIUM 1000MG/VIAL ONE; -FAMO-135 PO; +FENTANYL CITRATE/PF 50MCG/ML 2ML VIAL ONE; +HEPARIN 1000 UNITS/ML 10ML ONE; +HEPARIN SODIUM 1,000 UNIT/1ML VIAL IV NR; +HEPARIN SODIUM 1,000 UNIT/1ML VIAL IV ONE; +HYDROMORPHONE HCL/PF 2MG/ML (OR) ONE; +HYDROMORPHONE HCL/PF 2MG/ML CPJ IV PRN; -ISOS1TAB PO; +LIDOCAINE HCL 1% 20ML VIAL (Pyxis) INJ ONE; +LIDOCAINE HCL 2% JELLY 5ML ONE; +LIDOCAINE HCL/PF 1% 10 MG/ML 5ML VIAL ONE; +MEPERIDINE HCL/PF 25MG/ML CPJ IV PRN; +METOCLOPRAMIDE HCL 10MG/2ML VIAL ONE; +MIDAZOLAM HCL 2 MG/2 ML VIAL ONE; +MORPHINE SULFATE 2 MG/ML CPJ (NOT FOR IM USE) IV PRN; +ONDANSETRON HCL 4MG/2ML INJ IV PRN; +ONDANSETRON HCL 4MG/2ML INJ ONE; +PAPAVERINE HCL 30 MG/ML 2ML IV ONE; +PROPOFOL 200MG/20ML VIAL IV ONE; +ROPIVACAINE HCL 10MG/ML 20 ML VIAL EPI ONE; +SODIUM CHLORIDE 0.9% 1,000 ML IV ONE; +SODIUM CHLORIDE 0.9% 1,000 ML ONE; +SODIUM CHLORIDE 0.9% 250 ML IV ONE; +SODIUM CHLORIDE 0.9% IRRIG SOL 1,000 ML IR ONE; +THROMBIN (BOVINE) 5000 UNITS/VIAL TOP ONE
[2020-10-10 10:17] LABS: BASOPHILS % 0.4 % (0.0-2.0); EOSINOPHILS % 1.5 % (0.0-5.0); HEMATOCRIT. 36.6 % (36.0-48.0); HEMOGLOBIN. 11.9 g/dL (12.0-16.0); LYMPHOCYTES % 17.3 % (20.0-50.0); MEAN CORPUSCULAR HEMOGLOBIN 28.7 pg (28.0-32.0); MEAN PLATELET VOLUME 9.6 fl (7.4-10.4); MONOCYTES % 6.2 % (2.0-8.0); NEUTROPHILS % 74.6 % (40.0-76.0); PLATELET 224 x1000/uL (130-400); RED BLOOD CELL COUNT 4.15 mill/uL (4.2-5.4); RED CELL DISTRIBUTION WIDTH 14.2 % (11.6-14.6)
[2020-10-10 10:22] LABS: UCG SCREEN NEGATIVE
[2020-10-10 10:29] LABS: PROTHROMBIN TIME 10.5 sec (9.6-11.0)
== END | disposition home or self-care (01) ==
LOC: OR 09:35
PROVIDERS: ATTEND Surgery Vascular Surgery
DX: N18.6 End stage renal disease (principal); N99.2 Postprocedural adhesions of vagina; E66.01 Morbid (severe) obesity due to excess calories; Z79.899 Other long term (current) drug therapy; Z98.890 Other specified postprocedural states; Z79.82 Long term (current) use of aspirin; Z88.0 Allergy status to penicillin; Z82.49 Family history of ischemic heart disease and other diseases of the circulatory system
CPT/HCPCS: 36415; 36821; 80048; 81025; 82962; 85025; 85610; 85730; J0690; J1170; J1644; J2250; J2405; J2704; J2765; J2795; J3010; J3490; J7030; J7040; J7050; A4565; J2440

== ENCOUNTER → 2020-11-26 | Outpatient (CLI) | payer MEDICARE, MEDICAID ==
[~2020-11-26] MED LIST changes: -BACITRACIN 15GM TUBE TOP ONE; -BACITRACIN 50,000 UNITS/VIAL ONE; -BUPIVACAINE HCL/PF 0.5% (5MG/ML) 10ML ONE; -CEFAZOLIN SODIUM 1000MG/VIAL ONE; -FENTANYL CITRATE/PF 50MCG/ML 2ML VIAL ONE; -HEPARIN 1000 UNITS/ML 10ML ONE; -HEPARIN SODIUM 1,000 UNIT/1ML VIAL IV NR; -HEPARIN SODIUM 1,000 UNIT/1ML VIAL IV ONE; -HYDROMORPHONE HCL/PF 2MG/ML (OR) ONE; -HYDROMORPHONE HCL/PF 2MG/ML CPJ IV PRN; -LIDOCAINE HCL 1% 20ML VIAL (Pyxis) INJ ONE; -LIDOCAINE HCL 2% JELLY 5ML ONE; -LIDOCAINE HCL/PF 1% 10 MG/ML 5ML VIAL ONE; -MEPERIDINE HCL/PF 25MG/ML CPJ IV PRN; -METOCLOPRAMIDE HCL 10MG/2ML VIAL ONE; -MIDAZOLAM HCL 2 MG/2 ML VIAL ONE; -MORPHINE SULFATE 2 MG/ML CPJ (NOT FOR IM USE) IV PRN; -ONDANSETRON HCL 4MG/2ML INJ IV PRN; -ONDANSETRON HCL 4MG/2ML INJ ONE; -PAPAVERINE HCL 30 MG/ML 2ML IV ONE; -PROPOFOL 200MG/20ML VIAL IV ONE; -ROPIVACAINE HCL 10MG/ML 20 ML VIAL EPI ONE; -SODIUM CHLORIDE 0.9% 1,000 ML IV ONE; -SODIUM CHLORIDE 0.9% 1,000 ML ONE; -SODIUM CHLORIDE 0.9% 250 ML IV ONE; -SODIUM CHLORIDE 0.9% IRRIG SOL 1,000 ML IR ONE; -THROMBIN (BOVINE) 5000 UNITS/VIAL TOP ONE
== END | disposition home or self-care (01) ==
LOC: LAB 06:23
PROVIDERS: ATTEND Surgery Vascular Surgery
DX: Z01.812 Encounter for preprocedural laboratory examination (principal); N18.6 End stage renal disease; Z20.822 Contact with and (suspected) exposure to COVID-19
CPT/HCPCS: 87426

== ENCOUNTER → 2020-11-26 | Day surgery (SDC) | payer MEDICARE, MEDICAID ==
[~2020-11-26] VITALS: Ht 160 cm; Wt 139.7 kg
[~2020-11-26] MED LIST changes: +BACITRACIN 15GM TUBE TOP ONE; +BUPIVACAINE HCL/PF 0.5% (5MG/ML) 10ML ONE; +CEFAZOLIN SODIUM 1000MG/VIAL ONE; +EPHEDRINE SULFATE 50MG/ML VIAL ONE; +ETOMIDATE 2MG/ML 10ML VIAL IV ONE; +FENTANYL CITRATE/PF 50MCG/ML 2ML VIAL ONE; +GENTAMICIN SULF 40MG/ML 2ML VIAL ONE; +HEPARIN SODIUM 1,000 UNIT/1ML VIAL IV ONE; +HEPARIN SODIUM 1,000 UNIT/1ML VIAL IV SCH; +HYDROMORPHONE HCL/PF 2MG/ML CPJ IV PRN; +LIDOCAINE HCL 1% 20ML VIAL (Pyxis) INJ ONE; +MEPERIDINE HCL/PF 25MG/ML CPJ IV PRN; +METOCLOPRAMIDE HCL 10MG/2ML VIAL ONE; +MIDAZOLAM HCL 2 MG/2 ML VIAL ONE; +MORPHINE SULFATE 2 MG/ML CPJ (NOT FOR IM USE) IV PRN; +ONDANSETRON HCL 4MG/2ML INJ IV PRN; +ONDANSETRON HCL 4MG/2ML INJ ONE; +SODIUM CHLORIDE 0.9% 1,000 ML IV ONE; +SODIUM CHLORIDE 0.9% 10ML VIAL ONE; +SODIUM CHLORIDE 0.9% 500 ML IV ONE; +THROMBIN (BOVINE) 5000 UNITS/VIAL TOP ONE
[2020-11-26 09:24] LABS: UCG SCREEN NEGATIVE
[2020-11-26 09:26] LABS: BASOPHILS % 0.4 % (0.0-2.0); EOSINOPHILS % 1.2 % (0.0-5.0); HEMATOCRIT. 35.5 % (36.0-48.0); HEMOGLOBIN. 11.4 g/dL (12.0-16.0); LYMPHOCYTES % 15.3 % (20.0-50.0); MEAN CORPUSCULAR HEMOGLOBIN 28.5 pg (28.0-32.0); MEAN CORPUSCULAR VOLUME 89.1 fL (81.0-99.0); MONOCYTES % 6.3 % (2.0-8.0); NEUTROPHILS % 76.8 % (40.0-76.0); PLATELET 205 x1000/uL (130-400); RED BLOOD CELL COUNT 3.99 mill/uL (4.2-5.4); RED CELL DISTRIBUTION WIDTH 14.5 % (11.6-14.6)
[2020-11-26 09:38] LABS: PARTIAL THROMBOPLASTIN TIME 26.2 sec (23.4-31.0); PROTHROMBIN TIME 10.8 sec (9.6-11.0)
== END | disposition home or self-care (01) ==
LOC: OR 07:44
PROVIDERS: ATTEND Surgery Vascular Surgery
DX: T82.858A Stenosis of other vascular prosthetic devices, implants and grafts, initial encounter (principal); E66.01 Morbid (severe) obesity due to excess calories; I77.0 Arteriovenous fistula, acquired; I12.0 Hypertensive chronic kidney disease with stage 5 chronic kidney disease or end stage renal disease; N18.6 End stage renal disease; I25.10 Atherosclerotic heart disease of native coronary artery without angina pectoris; E78.00 Pure hypercholesterolemia, unspecified; I48.91 Unspecified atrial fibrillation; Z79.899 Other long term (current) drug therapy; Z98.890 Other specified postprocedural states; X58.XXXA Exposure to other specified factors, initial encounter; Y93.89 Activity, other specified; Y92.89 Other specified places as the place of occurrence of the external cause; Y99.8 Other external cause status
CPT/HCPCS: 36415; 36818; 80048; 81025; 82962; 85025; 85610; 85730; 87426; 93005; J0690; J1644; J2250; J2405; J2765; J3010; J3490; J7040; A4565; J1580

== ENCOUNTER 2021-09-23 08:27 | Emergency (ER) | payer OTHER, MEDICAID ==
[~2021-09-23] VITALS: Ht 160 cm; Wt 139.0 kg
[~2021-09-23 08:27] MED LIST changes: -BACITRACIN 15GM TUBE TOP ONE; -BUPIVACAINE HCL/PF 0.5% (5MG/ML) 10ML ONE; +CARV25TA47 MT; -CEFAZOLIN SODIUM 1000MG/VIAL ONE; -COR25 PO; -EPHEDRINE SULFATE 50MG/ML VIAL ONE; -ETOMIDATE 2MG/ML 10ML VIAL IV ONE; -FENTANYL CITRATE/PF 50MCG/ML 2ML VIAL ONE; -GENTAMICIN SULF 40MG/ML 2ML VIAL ONE; -HEPARIN SODIUM 1,000 UNIT/1ML VIAL IV ONE; -HEPARIN SODIUM 1,000 UNIT/1ML VIAL IV SCH; -HYDR-4135 PO; -HYDROMORPHONE HCL/PF 2MG/ML CPJ IV PRN; -ISOS10TA53 PO; +ISOS1TAB PO; -LIDOCAINE HCL 1% 20ML VIAL (Pyxis) INJ ONE; -MEPERIDINE HCL/PF 25MG/ML CPJ IV PRN; -METOCLOPRAMIDE HCL 10MG/2ML VIAL ONE; -MIDAZOLAM HCL 2 MG/2 ML VIAL ONE; -MORPHINE SULFATE 2 MG/ML CPJ (NOT FOR IM USE) IV PRN; -ONDANSETRON HCL 4MG/2ML INJ IV PRN; -ONDANSETRON HCL 4MG/2ML INJ ONE; -SODIUM CHLORIDE 0.9% 1,000 ML IV ONE; -SODIUM CHLORIDE 0.9% 10ML VIAL ONE; -SODIUM CHLORIDE 0.9% 500 ML IV ONE; -THROMBIN (BOVINE) 5000 UNITS/VIAL TOP ONE
[2021-09-23] MEDS ORDERED: DIPHENHYDRAMINE 50MG/ML VIAL IV ONE (08:45)
[2021-09-23] MEDS ORDERED: FAMOTIDINE 20MG/2ML VIAL IV ONE (08:45)
[2021-09-23] MEDS ORDERED: METHYLPREDNISOLONE SOD SUCC 125 MG/2 ML VIAL IV ONE (08:45)
[2021-09-23 09:22] LABS: BASOPHILS % 0.2 % (0.0-2.0); EOSINOPHILS % 0.5 % (0.0-5.0); HEMATOCRIT. 38.6 % (36.0-48.0); HEMOGLOBIN. 12.7 g/dL (12.0-16.0); LYMPHOCYTES % 14.2 % (20.0-50.0); MEAN CORPUSCULAR VOLUME 88.6 fL (81.0-99.0); MONOCYTES % 5.5 % (2.0-8.0); NEUTROPHILS % 79.6 % (40.0-76.0); PLATELET 264 x1000/uL (130-400); RED BLOOD CELL COUNT 4.36 mill/uL (4.2-5.4); RED CELL DISTRIBUTION WIDTH 13.8 % (11.6-14.6)
[2021-09-23 09:28] LABS: CHLORIDE 100 mEq/L (98-107)
[2021-09-23 09:33] LABS: HCG SCREEN NEGATIVE
[2021-09-23] MEDS ORDERED: DIPH25TA62 PO (10:33)
[2021-09-23] MEDS ORDERED: P20 MT (10:33)
[2021-09-23] MEDS ORDERED: EPIN0.3P3 IM (10:33)
[2021-09-23] MEDS ORDERED: FAMO-135 MT (10:33)
[2021-09-23 11:09] VITALS: BP 128/83
== END 2021-09-23 11:20 | disposition home or self-care (01) ==
LOC: ER 08:27
DX: T78.40XA Allergy, unspecified, initial encounter (principal); I12.0 Hypertensive chronic kidney disease with stage 5 chronic kidney disease or end stage renal disease; N18.6 End stage renal disease; Z88.0 Allergy status to penicillin; Z79.899 Other long term (current) drug therapy; Z98.890 Other specified postprocedural states; X58.XXXA Exposure to other specified factors, initial encounter
CPT/HCPCS: 36415; 80053; 84550; 84703; 85025; 93005; 96374; 96375; 99284; J1200; J2930; J3490

== ENCOUNTER 2022-03-03 18:45 | Inpatient (IN) | payer OTHER, MEDICAID ==
[~2022-03-03] VITALS: Ht 160 cm; Wt 138.3 kg
[~2022-03-03 18:45] MED LIST changes: +DIPH25TA62 PO; +EPIN0.3P3 IM; +FAMO-135 MT; +P20 MT
[2022-03-03 22:04] LABS: HEMATOCRIT. 22.5 % (36.0-48.0); HEMOGLOBIN. 7.5 g/dL (12.0-16.0); MEAN CORPUSCULAR HEMOGLOBIN 28.8 pg (28.0-32.0); MEAN CORPUSCULAR VOLUME 86.4 fL (81.0-99.0); MEAN PLATELET VOLUME 8.7 fl (7.4-10.4); PLATELET 309 x1000/uL (130-400); RED CELL DISTRIBUTION WIDTH 14.8 % (11.6-14.6)
[2022-03-03 22:20] LABS: PLATELET ESTIMATE NORMAL
[2022-03-03 22:26] LABS: CHLORIDE 92 mEq/L (98-107)
[2022-03-03] MEDS ORDERED: ASPIRIN 325MG TABLET PO ONE (23:45)
[2022-03-04] VITALS (12 sets, daily range): BP systolic 88–146; BP diastolic 52–75
[2022-03-04] MEDS ORDERED: ASPIRIN 325MG TABLET PO NR (01:30)
[2022-03-04] MEDS ORDERED: ZOLPIDEM TARTRATE 5MG TABLET PO PRN (06:30)
[2022-03-04] MEDS: ISOSORBIDE MONONITRATE 60MG TABLET SR 24HR PO SCH (08:51)
[2022-03-04] MEDS: CLOPIDOGREL 75MG TABLET PO SCH (08:51)
[2022-03-04] MEDS: HYDRALAZINE HCL 50MG TABLET PO SCH ×4 (08:51→17:00)
[2022-03-04] MEDS: CARVEDILOL 12.5MG TABLET PO SCH (08:52)
[2022-03-04] MEDS ORDERED: ASPIRIN 81MG TABLET PO SCH (09:00)
[2022-03-04 09:46] LABS: BASOPHILS % 0.3 % (0.0-2.0); EOSINOPHILS % 0.1 % (0.0-5.0); LYMPHOCYTES % 7.1 % (20.0-50.0); MEAN CORPUSCULAR HEMOGLOBIN 27.8 pg (28.0-32.0); MEAN CORPUSCULAR VOLUME 86.1 fL (81.0-99.0); MEAN PLATELET VOLUME 9.5 fl (7.4-10.4); MONOCYTES % 3.1 % (2.0-8.0); NEUTROPHILS % 89.4 % (40.0-76.0); PLATELET 281 x1000/uL (130-400); RED BLOOD CELL COUNT 2.43 mill/uL (4.2-5.4); RED CELL DISTRIBUTION WIDTH 14.6 % (11.6-14.6)
[2022-03-04 09:54] LABS: HEMOGLOBIN. 6.8 g/dL (12.0-16.0)
[2022-03-04 10:01] LABS: PHOSPHORUS 4.5 mg/dL (2.5-4.9)
[2022-03-04 16:47] LABS: HEPATITIS B SURFACE ANTIGEN NEGATIVE
[2022-03-04 17:54] LABS: TOTAL IRON BINDING CAPACITY 172 ug/dL (250-450)
[2022-03-04 18:21] LABS: VITAMIN B12 SERUM 1350 pg/mL (211-911)
[2022-03-04 19:39] LABS: FERRITIN > 8250 ng/mL (10-291)
[2022-03-04] MEDS ORDERED: LEVOFLOXACIN 500MG PREMIX 100 ML IV SCH (20:00)
[2022-03-04 21:55] LABS: HEMATOCRIT 21.1 % (36.0-48.0); HEMOGLOBIN 7.1 g/dL (12.0-16.0)
[2022-03-05] VITALS (11 sets, daily range): BP systolic 106–136; BP diastolic 62–70
[2022-03-05] MEDS: CARVEDILOL 12.5MG TABLET PO SCH ×3 (00:43→20:53)
[2022-03-05 06:20] LABS: INR 1.1; PROTHROMBIN TIME 12.2 sec (9.6-11.0)
[2022-03-05 07:04] LABS: BASOPHILS % 0.1 % (0.0-2.0); EOSINOPHILS % 0.2 % (0.0-5.0); LYMPHOCYTES % 7.3 % (20.0-50.0); MEAN CORPUSCULAR HEMOGLOBIN 27.6 pg (28.0-32.0); MEAN CORPUSCULAR VOLUME 84.5 fL (81.0-99.0); MEAN PLATELET VOLUME 9.7 fl (7.4-10.4); MONOCYTES % 3.8 % (2.0-8.0); NEUTROPHILS % 88.6 % (40.0-76.0); PLATELET 235 x1000/uL (130-400); RED BLOOD CELL COUNT 2.39 mill/uL (4.2-5.4); RED CELL DISTRIBUTION WIDTH 15.6 % (11.6-14.6)
[2022-03-05 08:13] LABS: HEMATOCRIT. 20.2 % (36.0-48.0); HEMOGLOBIN. 6.6 g/dL (12.0-16.0)
[2022-03-05] MEDS: HYDRALAZINE HCL 50MG TABLET PO SCH ×3 (09:00→17:00)
[2022-03-05] MEDS: CLOPIDOGREL 75MG TABLET PO SCH (09:30)
[2022-03-05] MEDS: ISOSORBIDE MONONITRATE 60MG TABLET SR 24HR PO SCH (09:31)
[2022-03-05 18:02] LABS: CLARITY URINE TURBID (CLEAR); COLOR URINE DARK YELLOW (YELLOW); KETONES URINE TRACE (NEGATIVE); LEUKOCYTE ESTERASE URINE 3+ (NEGATIVE); NITRITE URINE NEGATIVE (NEGATIVE); OCCULT BLOOD URINE 1+ (NEGATIVE); PH URINE 5.5 (4.5-8.0); PROTEIN URINE 3+ (NEGATIVE); SPECIFIC GRAVITY URINE 1.018 (1.005-1.030)
[2022-03-05] MEDS ORDERED: VANCOMYCIN 1500MG in DEXTROSE 5% WATER 250ML IV SCH (20:00)
[2022-03-05 20:52] LABS: HEMATOCRIT 24.5 % (36.0-48.0); HEMOGLOBIN 7.7 g/dL (12.0-16.0)
[2022-03-05] MEDS: GUAIFENESIN 200MG/10ML SUGAR FREE UDC PO PRN (20:52)
[2022-03-06] VITALS: BP 127/75
[2022-03-06 04:00] VITALS: BP 111/66
[2022-03-06 06:39] LABS: BASOPHILS % 0.1 % (0.0-2.0); EOSINOPHILS % 0.2 % (0.0-5.0); HEMATOCRIT. 25.1 % (36.0-48.0); LYMPHOCYTES % 10.2 % (20.0-50.0); MEAN CORPUSCULAR VOLUME 87.7 fL (81.0-99.0); MEAN PLATELET VOLUME 10.2 fl (7.4-10.4); MONOCYTES % 4.6 % (2.0-8.0); NEUTROPHILS % 84.9 % (40.0-76.0); PLATELET 155 x1000/uL (130-400); RED BLOOD CELL COUNT 2.87 mill/uL (4.2-5.4); RED CELL DISTRIBUTION WIDTH 16.2 % (11.6-14.6)
[2022-03-06 08:00] VITALS: BP 145/84
[2022-03-06] MEDS: CARVEDILOL 12.5MG TABLET PO SCH ×2 (08:05→21:24)
[2022-03-06] MEDS: CLOPIDOGREL 75MG TABLET PO SCH (08:05)
[2022-03-06] MEDS: HYDRALAZINE HCL 50MG TABLET PO SCH ×3 (08:05→18:24)
[2022-03-06] MEDS: ISOSORBIDE MONONITRATE 60MG TABLET SR 24HR PO SCH (08:05)
[2022-03-06] MEDS: ACETAMINOPHEN 325MG TABLET PO PRN (09:08)
[2022-03-06 12:00] VITALS: BP 102/54
[2022-03-06 16:00] VITALS: BP 136/65
[2022-03-06] MEDS ORDERED: VANCOMYCIN 1G PREMIX 200 ML IV SCH (18:00)
[2022-03-06 20:00] VITALS: BP_SYST 120; BP_SYST 125; BP_DIAS 44; BP_DIAS 63
[2022-03-06] MEDS ORDERED: LEVOFLOXACIN 250MG PREMIX 50 ML IV SCH (21:00)
[2022-03-06] MEDS: GUAIFENESIN 200MG/10ML SUGAR FREE UDC PO PRN (22:38)
[2022-03-07] VITALS: BP 113/79
[2022-03-07 04:00] VITALS: BP 115/81
[2022-03-07 06:47] LABS: BASOPHILS % 0.3 % (0.0-2.0); EOSINOPHILS % 0.5 % (0.0-5.0); HEMATOCRIT. 25.1 % (36.0-48.0); LYMPHOCYTES % 8.4 % (20.0-50.0); MEAN CORPUSCULAR HEMOGLOBIN 27.9 pg (28.0-32.0); MONOCYTES % 5.3 % (2.0-8.0); NEUTROPHILS % 85.5 % (40.0-76.0); PLATELET 223 x1000/uL (130-400); RED BLOOD CELL COUNT 2.88 mill/uL (4.2-5.4); RED CELL DISTRIBUTION WIDTH 15.8 % (11.6-14.6)
[2022-03-07 06:53] LABS: CHLORIDE 95 mEq/L (98-107)
[2022-03-07 08:00] VITALS: BP 124/62
[2022-03-07] MEDS: HYDRALAZINE HCL 50MG TABLET PO SCH ×3 (08:36→16:47)
[2022-03-07] MEDS: CARVEDILOL 12.5MG TABLET PO SCH ×2 (08:36→21:06)
[2022-03-07] MEDS: ISOSORBIDE MONONITRATE 60MG TABLET SR 24HR PO SCH (08:36)
[2022-03-07] MEDS ORDERED: EPOETIN ALFA-EPBX 10,000 UNIT/ML VIAL SUBCUT ONE (10:15)
[2022-03-07 12:00] VITALS: BP 94/61
[2022-03-07 16:00] VITALS: BP 109/61
[2022-03-07 20:00] VITALS: BP 113/66
[2022-03-07] MEDS ORDERED: EPOETIN ALFA-EPBX 4,000 UNIT/ML VIAL SUBCUT NR (21:00)
[2022-03-08] VITALS: BP 118/60
[2022-03-08 04:00] VITALS: BP 125/69
[2022-03-08 06:21] LABS: UCG SCREEN NEGATIVE
[2022-03-08 07:01] LABS: BASOPHILS % 0.2 % (0.0-2.0); EOSINOPHILS % 0.5 % (0.0-5.0); HEMATOCRIT. 23.3 % (36.0-48.0); HEMOGLOBIN. 7.7 g/dL (12.0-16.0); LYMPHOCYTES % 11.6 % (20.0-50.0); MEAN CORPUSCULAR HEMOGLOBIN 28.5 pg (28.0-32.0); MEAN CORPUSCULAR VOLUME 85.8 fL (81.0-99.0); MEAN PLATELET VOLUME 9.7 fl (7.4-10.4); MONOCYTES % 5.5 % (2.0-8.0); NEUTROPHILS % 82.2 % (40.0-76.0); PLATELET 235 x1000/uL (130-400); RED BLOOD CELL COUNT 2.71 mill/uL (4.2-5.4); RED CELL DISTRIBUTION WIDTH 15.3 % (11.6-14.6)
[2022-03-08 07:03] LABS: CHLORIDE 95 mEq/L (98-107)
[2022-03-08 07:13] LABS: INR 1.1; PROTHROMBIN TIME 11.6 sec (9.6-11.0)
[2022-03-08 08:00] VITALS: BP 134/75
[2022-03-08] MEDS: ISOSORBIDE MONONITRATE 60MG TABLET SR 24HR PO SCH (08:40)
[2022-03-08] MEDS: HYDRALAZINE HCL 50MG TABLET PO SCH ×3 (08:41→17:31)
[2022-03-08] MEDS: CARVEDILOL 12.5MG TABLET PO SCH ×2 (08:42→21:12)
[2022-03-08 12:00] VITALS: BP 130/85
[2022-03-08] MEDS ORDERED: PROPOFOL 200MG/20ML VIAL IV ONE (13:34)
[2022-03-08] MEDS ORDERED: DEXAMETHASONE 4MG/ML 1ML VIAL ONE (13:35)
[2022-03-08] MEDS ORDERED: ONDANSETRON HCL 4MG/2ML INJ ONE (13:35)
[2022-03-08] MEDS ORDERED: MIDAZOLAM HCL 2 MG/2 ML VIAL ONE (13:57)
[2022-03-08 15:22] LABS: HEPATITIS B SURFACE ANTIGEN NEGATIVE
[2022-03-08 16:00] VITALS: BP 149/86
[2022-03-08 20:00] VITALS: BP 131/71
[2022-03-09] VITALS: BP 111/59
[2022-03-09 04:00] VITALS: BP 109/69
[2022-03-09] MEDS: HYDRALAZINE HCL 50MG TABLET PO SCH ×4 (09:51→18:46)
[2022-03-09] MEDS: CARVEDILOL 12.5MG TABLET PO SCH ×2 (09:52→22:00)
[2022-03-09] MEDS: ISOSORBIDE MONONITRATE 60MG TABLET SR 24HR PO SCH (09:53)
[2022-03-09] MEDS ORDERED: LORATADINE 10MG TABLET PO NR (14:15)
[2022-03-09] MEDS ORDERED: ACETAMINOPHEN 325MG TABLET PO NR (14:15)
[2022-03-09] MEDS ORDERED: DIPHENHYDRAMINE 25MG CAPSULE PO NR (14:15)
[2022-03-09] MEDS ORDERED: ACETAMINOPHEN 650MG SUPP PR NR (14:15)
[2022-03-09 14:17] LABS: BASOPHILS % 0.1 % (0.0-2.0); EOSINOPHILS % 0.2 % (0.0-5.0); HEMOGLOBIN. 8.6 g/dL (12.0-16.0); LYMPHOCYTES % 8.3 % (20.0-50.0); MEAN CORPUSCULAR HEMOGLOBIN 28.2 pg (28.0-32.0); MEAN CORPUSCULAR VOLUME 85.7 fL (81.0-99.0); MEAN PLATELET VOLUME 9.8 fl (7.4-10.4); MONOCYTES % 4.9 % (2.0-8.0); NEUTROPHILS % 86.5 % (40.0-76.0); PLATELET 271 x1000/uL (130-400); RED BLOOD CELL COUNT 3.04 mill/uL (4.2-5.4); RED CELL DISTRIBUTION WIDTH 15.7 % (11.6-14.6)
[2022-03-09] MEDS ORDERED: DEXTROSE 50% WATER 50ML SYRINGE IV PRN (15:15)
[2022-03-09] MEDS ORDERED: INSULIN GLARGINE 100 UNITS/ML SUBCUT NR (15:30)
[2022-03-09] MEDS: BLOOD SUGAR DIAGNOSTIC STRIP TEST SCH ×2 (17:10→22:14)
[2022-03-09] MEDS: INSULIN LISPRO 100 UNITS/ML SUBCUT SCH ×2 (17:40→22:13)
[2022-03-09] MEDS ORDERED: VANCOMYCIN 1G PREMIX 200 ML IV SCH (18:00)
[2022-03-09 20:00] VITALS: BP 144/73
[2022-03-09] MEDS ORDERED: VANCOMYCIN 1G PREMIX 200 ML IV NR (20:00)
[2022-03-09] MEDS ORDERED: EPOETIN ALFA-EPBX 10,000 UNIT/ML VIAL SUBCUT SCH (21:00)
[2022-03-09] MEDS: EPOETIN ALFA-EPBX 4,000 UNIT/ML VIAL SUBCUT SCH (21:58)
[2022-03-09] MEDS: INSULIN GLARGINE 100 UNITS/ML SUBCUT SCH (23:49)
[2022-03-10] VITALS: BP 130/68
[2022-03-10 04:00] VITALS: BP 128/70
[2022-03-10] MEDS: BLOOD SUGAR DIAGNOSTIC STRIP TEST SCH ×4 (06:47→22:03)
[2022-03-10] MEDS: INSULIN LISPRO 100 UNITS/ML SUBCUT SCH ×4 (06:53→22:07)
[2022-03-10 07:21] LABS: BASOPHILS % 0.3 % (0.0-2.0); EOSINOPHILS % 0.7 % (0.0-5.0); HEMOGLOBIN. 8.7 g/dL (12.0-16.0); LYMPHOCYTES % 14.4 % (20.0-50.0); MEAN CORPUSCULAR HEMOGLOBIN 28.2 pg (28.0-32.0); MEAN CORPUSCULAR VOLUME 87.1 fL (81.0-99.0); MEAN PLATELET VOLUME 9.4 fl (7.4-10.4); MONOCYTES % 5.4 % (2.0-8.0); NEUTROPHILS % 79.2 % (40.0-76.0); PLATELET 291 x1000/uL (130-400); RED CELL DISTRIBUTION WIDTH 15.9 % (11.6-14.6)
[2022-03-10 08:00] VITALS: BP 117/65
[2022-03-10] MEDS: HYDRALAZINE HCL 50MG TABLET PO SCH ×3 (09:55→17:20)
[2022-03-10] MEDS: CARVEDILOL 12.5MG TABLET PO SCH ×2 (10:00→21:30)
[2022-03-10] MEDS: ISOSORBIDE MONONITRATE 60MG TABLET SR 24HR PO SCH (10:01)
[2022-03-10] MEDS: INSULIN GLARGINE 100 UNITS/ML SUBCUT SCH ×2 (10:02→22:07)
[2022-03-10 12:00] VITALS: BP 138/71
[2022-03-10 16:00] VITALS: BP 125/66
[2022-03-10 20:00] VITALS: BP 111/57
[2022-03-11] VITALS: BP 118/60
[2022-03-11 04:00] VITALS: BP 114/55
[2022-03-11] MEDS: INSULIN LISPRO 100 UNITS/ML SUBCUT SCH ×4 (07:07→21:43)
[2022-03-11] MEDS: BLOOD SUGAR DIAGNOSTIC STRIP TEST SCH ×4 (07:07→21:26)
[2022-03-11 07:18] LABS: BASOPHILS % 0.3 % (0.0-2.0); EOSINOPHILS % 0.6 % (0.0-5.0); HEMATOCRIT. 27.8 % (36.0-48.0); HEMOGLOBIN. 8.8 g/dL (12.0-16.0); LYMPHOCYTES % 16.6 % (20.0-50.0); MEAN CORPUSCULAR VOLUME 88.4 fL (81.0-99.0); MEAN PLATELET VOLUME 9.5 fl (7.4-10.4); MONOCYTES % 6.3 % (2.0-8.0); NEUTROPHILS % 76.2 % (40.0-76.0); PLATELET 284 x1000/uL (130-400); RED BLOOD CELL COUNT 3.15 mill/uL (4.2-5.4); RED CELL DISTRIBUTION WIDTH 16.2 % (11.6-14.6)
[2022-03-11 08:00] VITALS: BP 126/82
[2022-03-11] MEDS ORDERED: LIDOCAINE HCL 1% 50ML VIAL (10MG/ML) ONE ×2 (08:36→10:13)
[2022-03-11] MEDS ORDERED: METOCLOPRAMIDE HCL 10MG/2ML VIAL IV NR (09:30)
[2022-03-11] MEDS ORDERED: BUPIVACAINE HCL 0.5% (5MG/ML) 50ML ONE (10:13)
[2022-03-11] MEDS ORDERED: THROMBIN (BOVINE) 5000 UNITS/VIAL TOP ONE (10:13)
[2022-03-11] MEDS ORDERED: POLYMYXIN B SULFATE 500000 UNITS/VIAL ONE (10:13)
[2022-03-11] MEDS ORDERED: BACITRACIN 15GM TUBE TOP ONE (10:13)
[2022-03-11] MEDS ORDERED: HEPARIN SODIUM 1,000 UNIT/1ML VIAL IV ONE (10:14)
[2022-03-11] MEDS: CARVEDILOL 12.5MG TABLET PO SCH ×2 (10:49→21:00)
[2022-03-11] MEDS: HYDRALAZINE HCL 50MG TABLET PO SCH ×3 (10:50→17:04)
[2022-03-11] MEDS: ISOSORBIDE MONONITRATE 60MG TABLET SR 24HR PO SCH (10:50)
[2022-03-11] MEDS: INSULIN GLARGINE 100 UNITS/ML SUBCUT SCH ×2 (10:51→21:42)
[2022-03-11 12:00] VITALS: BP 139/69
[2022-03-11 16:00] VITALS: BP 118/76
[2022-03-11 20:00] VITALS: BP 106/66
[2022-03-11] MEDS: EPOETIN ALFA-EPBX 4,000 UNIT/ML VIAL SUBCUT SCH (21:41)
[2022-03-12] VITALS (7 sets, daily range): BP systolic 115–125; BP diastolic 61–74
[2022-03-12] MEDS: BLOOD SUGAR DIAGNOSTIC STRIP TEST SCH ×4 (06:56→21:51)
[2022-03-12] MEDS: INSULIN LISPRO 100 UNITS/ML SUBCUT SCH ×4 (06:56→22:09)
[2022-03-12 07:46] LABS: BASOPHILS % 0.2 % (0.0-2.0); EOSINOPHILS % 0.2 % (0.0-5.0); HEMATOCRIT. 27.9 % (36.0-48.0); HEMOGLOBIN. 8.9 g/dL (12.0-16.0); LYMPHOCYTES % 13.8 % (20.0-50.0); MEAN CORPUSCULAR HEMOGLOBIN 27.6 pg (28.0-32.0); MEAN CORPUSCULAR VOLUME 86.9 fL (81.0-99.0); MEAN PLATELET VOLUME 9.2 fl (7.4-10.4); MONOCYTES % 6.8 % (2.0-8.0); PLATELET 306 x1000/uL (130-400); RED BLOOD CELL COUNT 3.21 mill/uL (4.2-5.4); RED CELL DISTRIBUTION WIDTH 15.9 % (11.6-14.6)
[2022-03-12] MEDS: ISOSORBIDE MONONITRATE 60MG TABLET SR 24HR PO SCH (08:21)
[2022-03-12] MEDS: CARVEDILOL 12.5MG TABLET PO SCH ×2 (08:21→21:53)
[2022-03-12] MEDS: HYDRALAZINE HCL 50MG TABLET PO SCH ×3 (08:21→17:00)
[2022-03-12] MEDS: INSULIN GLARGINE 100 UNITS/ML SUBCUT SCH ×2 (10:45→22:08)
[2022-03-12] MEDS ORDERED: VANCOMYCIN 1G PREMIX 200 ML IV SCH (14:00)
[2022-03-12] MEDS: ACETAMINOPHEN 325MG TABLET PO PRN (22:09)
[2022-03-13] VITALS: BP 102/57
[2022-03-13 04:00] VITALS: BP 120/70
[2022-03-13] MEDS: INSULIN LISPRO 100 UNITS/ML SUBCUT SCH ×3 (06:51→17:51)
[2022-03-13] MEDS: BLOOD SUGAR DIAGNOSTIC STRIP TEST SCH ×3 (06:51→17:39)
[2022-03-13 08:58] VITALS: BP 118/63
[2022-03-13] MEDS: ISOSORBIDE MONONITRATE 60MG TABLET SR 24HR PO SCH (08:59)
[2022-03-13] MEDS: CARVEDILOL 12.5MG TABLET PO SCH (08:59)
[2022-03-13] MEDS: HYDRALAZINE HCL 50MG TABLET PO SCH ×3 (08:59→17:00)
[2022-03-13] MEDS: INSULIN GLARGINE 100 UNITS/ML SUBCUT SCH (10:18)
[2022-03-13 12:00] VITALS: BP 147/79
[2022-03-13 16:00] VITALS: BP 102/57
[2022-03-13] MEDS ORDERED: VANCOMYCIN 500MG PREMIX 100 ML IV SCH (16:00)
[2022-03-13 17:28] VITALS: BP 102/57
== END 2022-03-13 18:50 | disposition home or self-care (01) | DRG 314 ==
LOC: ER 18:45 → MICUSO 03-04 01:17 → 8WST 03-04 01:26
PROVIDERS: ADMIT Internal Medicine; ATTEND Internal Medicine
PROC: 30233N1 Transfusion of Nonautologous Red Blood Cells into Peripheral Vein, Percutaneous Approach (ICD-10-PCS; 2022-03-04)
PROC: 5A1D70Z Performance of Urinary Filtration, Intermittent, Less than 6 Hours Per Day (ICD-10-PCS; 2022-03-04)
PROC: 5A1D70Z Performance of Urinary Filtration, Intermittent, Less than 6 Hours Per Day (ICD-10-PCS; 2022-03-06)
PROC: 0DB78ZX Excision of Stomach, Pylorus, Via Natural or Artificial Opening Endoscopic, Diagnostic (ICD-10-PCS; principal; 2022-03-08)
PROC: 5A1D70Z Performance of Urinary Filtration, Intermittent, Less than 6 Hours Per Day (ICD-10-PCS; 2022-03-09)
PROC: 02HV33Z Insertion of Infusion Device into Superior Vena Cava, Percutaneous Approach (ICD-10-PCS; 2022-03-11)
PROC: B548ZZA Ultrasonography of Superior Vena Cava, Guidance (ICD-10-PCS; 2022-03-11)
PROC: 5A1D70Z Performance of Urinary Filtration, Intermittent, Less than 6 Hours Per Day (ICD-10-PCS; 2022-03-11)
PROC: 0X9 Anatomical Regions, Upper Extremities, Drainage (ICD-10-PCS; 2022-03-11)
DX: T82.7XXA Infection and inflammatory reaction due to other cardiac and vascular devices, implants and grafts, initial encounter (principal); A41.01 Sepsis due to Methicillin susceptible Staphylococcus aureus; N18.6 End stage renal disease; E44.0 Moderate protein-calorie malnutrition; I50.20 Unspecified systolic (congestive) heart failure; E87.1 Hypo-osmolality and hyponatremia; N39.0 Urinary tract infection, site not specified; Z68.43 Body mass index [BMI] 50.0-59.9, adult; L02.414 Cutaneous abscess of left upper limb; B17.9 Acute viral hepatitis, unspecified; I13.2 Hypertensive heart and chronic kidney disease with heart failure and with stage 5 chronic kidney disease, or end stage renal disease; D63.1 Anemia in chronic kidney disease; Z20.822 Contact with and (suspected) exposure to COVID-19; E11.22 Type 2 diabetes mellitus with diabetic chronic kidney disease; E66.01 Morbid (severe) obesity due to excess calories; I25.10 Atherosclerotic heart disease of native coronary artery without angina pectoris; E11.65 Type 2 diabetes mellitus with hyperglycemia; E78.5 Hyperlipidemia, unspecified; D50.9 Iron deficiency anemia, unspecified; E87.8 Other disorders of electrolyte and fluid balance, not elsewhere classified; G47.33 Obstructive sleep apnea (adult) (pediatric); I25.5 Ischemic cardiomyopathy; I27.20 Pulmonary hypertension, unspecified; K29.70 Gastritis, unspecified, without bleeding; E11.51 Type 2 diabetes mellitus with diabetic peripheral angiopathy without gangrene; K44.9 Diaphragmatic hernia without obstruction or gangrene; R74.01 Elevation of levels of liver transaminase levels; R16.2 Hepatomegaly with splenomegaly, not elsewhere classified; I25.2 Old myocardial infarction; K76.0 Fatty (change of) liver, not elsewhere classified; Z99.2 Dependence on renal dialysis; Z82.49 Family history of ischemic heart disease and other diseases of the circulatory system; Z95.5 Presence of coronary angioplasty implant and graft; Z98.891 History of uterine scar from previous surgery; Z88.0 Allergy status to penicillin
CPT/HCPCS: 36415; 36573; 71045; 76700; 76881; 76942; 78806; 80048; 80053; 80061; 80076; 80202; 81003; 81025; 82140; 82270; 82550; 82607; 82728; 82746; 82962; 83540; 83550; 83880; 84100; 84145; 84484; 85014; 85018; 85025; 85044; 86705; 86709; 86803; 86850; 86900; 86920; 87075; 87077; 87186; 87340; 87426; 88305; 88312; 88313; 93005; 93306; 99291; A9547; C1725; J0885; J1100; J1644; J1815; J1956; J2250; J2405; J2704; J2765; J3370; J3490; J7060; P9016

== ENCOUNTER 2022-03-24 15:46 | Inpatient (IN) | payer OTHER, MEDICAID ==
[~2022-03-24] VITALS: Ht 160 cm; Wt 134.7 kg
[~2022-03-24 15:46] MED LIST changes: -ASPI-1406 PO; -CLOP-31 PO; -P20 MT
[2022-03-24] MEDS ORDERED: MEROPENEM 1,000 MG in SODIUM CHLORIDE 0.9% 100 ML IV ONE (16:45)
[2022-03-24] MEDS ORDERED: VANCOMYCIN 1G PREMIX 200 ML IV ONE (16:45)
[2022-03-24 18:42] LABS: CHLORIDE 106 mEq/L (98-107)
[2022-03-24 18:59] LABS: BASOPHILS % 0.4 % (0.0-2.0); EOSINOPHILS % 0.6 % (0.0-5.0); HEMATOCRIT. 30.5 % (36.0-48.0); HEMOGLOBIN. 9.8 g/dL (12.0-16.0); MEAN CORPUSCULAR HEMOGLOBIN 27.7 pg (28.0-32.0); MEAN CORPUSCULAR VOLUME 86.2 fL (81.0-99.0); MEAN PLATELET VOLUME 9.3 fl (7.4-10.4); MONOCYTES % 4.5 % (2.0-8.0); NEUTROPHILS % 79.5 % (40.0-76.0); PLATELET 286 x1000/uL (130-400); RED BLOOD CELL COUNT 3.54 mill/uL (4.2-5.4); RED CELL DISTRIBUTION WIDTH 16.4 % (11.6-14.6)
[2022-03-24 19:08] LABS: PROTHROMBIN TIME 10.8 sec (9.6-11.0)
[2022-03-24 19:40] LABS: HCG SCREEN NEGATIVE
[2022-03-24 20:48] LABS: HEPATITIS B SURFACE ANTIGEN NEGATIVE
[2022-03-24 22:00] VITALS: BP 138/91
[2022-03-24] MEDS ORDERED: HYDR-4135 PO (22:50)
[2022-03-24] MEDS ORDERED: ISOS20TA8 PO (22:50)
[2022-03-24] MEDS ORDERED: ACETAMINOPHEN 325MG TABLET PO PRN (23:00)
[2022-03-24] MEDS ORDERED: HYDROCODONE/ACETAMINOPHEN 5/325MG TABLET PO PRN (23:00)
[2022-03-24] MEDS ORDERED: CLONIDINE 0.1MG TABLET PO PRN (23:00)
[2022-03-24] MEDS ORDERED: ONDANSETRON HCL 4MG/2ML INJ IV PRN (23:00)
[2022-03-24] MEDS ORDERED: DEXTROSE 50% WATER 50ML SYRINGE IV PRN (23:00)
[2022-03-25] VITALS: BP 103/57
[2022-03-25 04:00] VITALS: BP 138/80
[2022-03-25] MEDS: BLOOD SUGAR DIAGNOSTIC STRIP TEST SCH ×4 (07:42→20:57)
[2022-03-25 08:00] VITALS: BP 120/79
[2022-03-25] MEDS: INSULIN LISPRO 100 UNITS/ML SUBCUT SCH ×4 (09:26→21:08)
[2022-03-25 09:56] LABS: BASOPHILS % 0.5 % (0.0-2.0); EOSINOPHILS % 0.6 % (0.0-5.0); HEMATOCRIT. 27.8 % (36.0-48.0); HEMOGLOBIN. 9.2 g/dL (12.0-16.0); LYMPHOCYTES % 11.5 % (20.0-50.0); MEAN CORPUSCULAR HEMOGLOBIN 28.4 pg (28.0-32.0); MEAN CORPUSCULAR VOLUME 85.8 fL (81.0-99.0); MEAN PLATELET VOLUME 9.1 fl (7.4-10.4); MONOCYTES % 4.6 % (2.0-8.0); NEUTROPHILS % 82.8 % (40.0-76.0); PLATELET 242 x1000/uL (130-400); RED BLOOD CELL COUNT 3.24 mill/uL (4.2-5.4); RED CELL DISTRIBUTION WIDTH 16.5 % (11.6-14.6)
[2022-03-25 10:18] LABS: PHOSPHORUS 4.1 mg/dL (2.5-4.9)
[2022-03-25] MEDS ORDERED: LIDOCAINE HCL/PF 1% 10 MG/ML 5ML VIAL ONE (10:32)
[2022-03-25 12:00] VITALS: BP 136/81
[2022-03-25] MEDS ORDERED: NALOXONE HCL 0.4MG/ML VIAL IV PRN (12:15)
[2022-03-25 16:00] VITALS: BP 106/55
[2022-03-25 20:00] VITALS: BP 124/78
[2022-03-25] MEDS ORDERED: ZOLPIDEM TARTRATE 5MG TABLET PO PRN (21:00)
[2022-03-25] MEDS ORDERED: VANCOMYCIN 750MG PREMIX 150 ML IV SCH (21:00)
[2022-03-26] VITALS: BP 134/86
[2022-03-26 04:00] VITALS: BP 113/68
[2022-03-26] MEDS: BLOOD SUGAR DIAGNOSTIC STRIP TEST SCH ×4 (06:36→21:00)
[2022-03-26 07:06] LABS: BASOPHILS % 0.4 % (0.0-2.0); EOSINOPHILS % 0.8 % (0.0-5.0); HEMATOCRIT. 27.1 % (36.0-48.0); LYMPHOCYTES % 16.7 % (20.0-50.0); MEAN CORPUSCULAR VOLUME 84.4 fL (81.0-99.0); MEAN PLATELET VOLUME 9.2 fl (7.4-10.4); NEUTROPHILS % 75.1 % (40.0-76.0); PLATELET 245 x1000/uL (130-400); RED BLOOD CELL COUNT 3.21 mill/uL (4.2-5.4); RED CELL DISTRIBUTION WIDTH 15.9 % (11.6-14.6)
[2022-03-26 07:40] VITALS: BP 130/80
[2022-03-26] MEDS: INSULIN LISPRO 100 UNITS/ML SUBCUT SCH ×4 (07:50→22:10)
[2022-03-26 12:00] VITALS: BP 116/80
[2022-03-26 12:36] LABS: CHLORIDE 106 mEq/L (98-107)
[2022-03-26 16:00] VITALS: BP 108/57
[2022-03-26 20:00] VITALS: BP 126/77
[2022-03-27 00:08] VITALS: BP 133/81
[2022-03-27 04:14] VITALS: BP 111/65
[2022-03-27] MEDS: BLOOD SUGAR DIAGNOSTIC STRIP TEST SCH ×4 (06:34→21:22)
[2022-03-27 07:23] LABS: BASOPHILS % 0.5 % (0.0-2.0); HEMATOCRIT. 27.6 % (36.0-48.0); HEMOGLOBIN. 9.1 g/dL (12.0-16.0); LYMPHOCYTES % 19.9 % (20.0-50.0); MEAN CORPUSCULAR HEMOGLOBIN 28.2 pg (28.0-32.0); MEAN CORPUSCULAR VOLUME 85.8 fL (81.0-99.0); MEAN PLATELET VOLUME 9.3 fl (7.4-10.4); NEUTROPHILS % 71.6 % (40.0-76.0); PLATELET 238 x1000/uL (130-400); RED BLOOD CELL COUNT 3.22 mill/uL (4.2-5.4); RED CELL DISTRIBUTION WIDTH 15.6 % (11.6-14.6)
[2022-03-27] MEDS: INSULIN LISPRO 100 UNITS/ML SUBCUT SCH ×4 (07:50→21:22)
[2022-03-27 08:00] VITALS: BP 126/78
[2022-03-27 08:17] LABS: UCG SCREEN NEGATIVE
[2022-03-27] MEDS ORDERED: THROMBIN (BOVINE) 5000 UNITS/VIAL TOP ONE (08:38)
[2022-03-27] MEDS ORDERED: POLYMYXIN B SULFATE 500000 UNITS/VIAL ONE (08:38)
[2022-03-27] MEDS ORDERED: BACITRACIN 15GM TUBE TOP ONE (08:39)
[2022-03-27] MEDS ORDERED: BUPIVACAINE HCL/PF 0.5% (5MG/ML) 10ML ONE (08:39)
[2022-03-27] MEDS ORDERED: HEPARIN SODIUM 1,000 UNIT/1ML VIAL IV ONE (08:39)
[2022-03-27] MEDS ORDERED: LIDOCAINE HCL 1% 10 MG/ML 10ML VIAL ONE (08:39)
[2022-03-27] MEDS ORDERED: MORPHINE SULFATE 4 MG/ML CPJ (NOT FOR IM USE) IV PRN (09:00)
[2022-03-27] MEDS ORDERED: DEXAMETHASONE 4MG/ML 1ML VIAL ONE (09:18)
[2022-03-27] MEDS ORDERED: PROPOFOL 200MG/20ML VIAL IV ONE (09:18)
[2022-03-27] MEDS ORDERED: ONDANSETRON HCL 4MG/2ML INJ ONE (09:18)
[2022-03-27] MEDS ORDERED: FENTANYL CITRATE/PF 50MCG/ML 2ML VIAL ONE (09:19)
[2022-03-27] MEDS ORDERED: MIDAZOLAM HCL 2 MG/2 ML VIAL ONE (09:19)
[2022-03-27] MEDS ORDERED: CLINDAMYCIN 900 MG PREMIX 50 ML IV ONE (09:31)
[2022-03-27] MEDS ORDERED: ONDANSETRON HCL 4MG/2ML INJ IV PRN (10:00)
[2022-03-27] MEDS ORDERED: LABETALOL 5MG/ML SYR 20 MG/4 ML SYRINGE IV PRN (10:00)
[2022-03-27] MEDS ORDERED: MEPERIDINE HCL/PF 25MG/ML CPJ IV PRN (10:00)
[2022-03-27] MEDS ORDERED: HYDROMORPHONE HCL/PF 2MG/ML CPJ IV PRN (10:00)
[2022-03-27] MEDS ORDERED: VANCOMYCIN 500MG PREMIX 100 ML IV SCH (14:00)
[2022-03-27 15:00] VITALS: BP 122/80
[2022-03-27 21:29] VITALS: BP 105/67
[2022-03-28] VITALS: BP 111/70
[2022-03-28 03:42] VITALS: BP 120/75
[2022-03-28] MEDS: BLOOD SUGAR DIAGNOSTIC STRIP TEST SCH ×2 (07:06→12:24)
[2022-03-28 08:00] VITALS: BP 122/86
[2022-03-28] MEDS: INSULIN LISPRO 100 UNITS/ML SUBCUT SCH ×2 (09:09→12:58)
[2022-03-28 11:02] LABS: BASOPHILS % 0.4 % (0.0-2.0); EOSINOPHILS % 0.2 % (0.0-5.0); HEMATOCRIT. 28.9 % (36.0-48.0); HEMOGLOBIN. 9.4 g/dL (12.0-16.0); LYMPHOCYTES % 14.8 % (20.0-50.0); MEAN CORPUSCULAR HEMOGLOBIN 27.8 pg (28.0-32.0); MEAN CORPUSCULAR VOLUME 85.2 fL (81.0-99.0); MEAN PLATELET VOLUME 9.2 fl (7.4-10.4); MONOCYTES % 6.5 % (2.0-8.0); NEUTROPHILS % 78.1 % (40.0-76.0); PLATELET 222 x1000/uL (130-400); RED CELL DISTRIBUTION WIDTH 15.7 % (11.6-14.6)
[2022-03-28 12:00] VITALS: BP 101/56
[2022-03-28 15:00] VITALS: BP 101/56
== END 2022-03-28 16:24 | disposition home or self-care (01) | DRG 252 ==
LOC: ER 15:46 → 6WST 19:22 → EDBEDREQ 19:42 → ENRESERV 20:29
PROVIDERS: ADMIT Internal Medicine; ATTEND Internal Medicine
PROC: 02HV33Z Insertion of Infusion Device into Superior Vena Cava, Percutaneous Approach (ICD-10-PCS; 2022-03-25)
PROC: B5181ZA Fluoroscopy of Superior Vena Cava using Low Osmolar Contrast, Guidance (ICD-10-PCS; 2022-03-25)
PROC: B548ZZA Ultrasonography of Superior Vena Cava, Guidance (ICD-10-PCS; 2022-03-25)
PROC: 5A1D70Z Performance of Urinary Filtration, Intermittent, Less than 6 Hours Per Day (ICD-10-PCS; 2022-03-25)
PROC: 0X9F0ZZ Drainage of Left Lower Arm, Open Approach (ICD-10-PCS; principal; 2022-03-27)
PROC: 03PY0DZ Removal of Intraluminal Device from Upper Artery, Open Approach (ICD-10-PCS; 2022-03-27)
DX: T82.7XXA Infection and inflammatory reaction due to other cardiac and vascular devices, implants and grafts, initial encounter (principal); N18.6 End stage renal disease; I13.2 Hypertensive heart and chronic kidney disease with heart failure and with stage 5 chronic kidney disease, or end stage renal disease; Z68.43 Body mass index [BMI] 50.0-59.9, adult; Z20.822 Contact with and (suspected) exposure to COVID-19; E78.5 Hyperlipidemia, unspecified; E66.01 Morbid (severe) obesity due to excess calories; E11.22 Type 2 diabetes mellitus with diabetic chronic kidney disease; I25.10 Atherosclerotic heart disease of native coronary artery without angina pectoris; G47.33 Obstructive sleep apnea (adult) (pediatric); I50.9 Heart failure, unspecified; D63.1 Anemia in chronic kidney disease; I25.2 Old myocardial infarction; I08.1 Rheumatic disorders of both mitral and tricuspid valves; I25.5 Ischemic cardiomyopathy; B95.8 Unspecified staphylococcus as the cause of diseases classified elsewhere; I27.20 Pulmonary hypertension, unspecified; Z95.5 Presence of coronary angioplasty implant and graft; Z99.2 Dependence on renal dialysis; Z91.15 Patient's noncompliance with renal dialysis; Z88.0 Allergy status to penicillin; Z82.49 Family history of ischemic heart disease and other diseases of the circulatory system; Z79.84 Long term (current) use of oral hypoglycemic drugs; Y83.2 Surgical operation with anastomosis, bypass or graft as the cause of abnormal reaction of the patient, or of later complication, without mention of misadventure at the time of the procedure; Y92.89 Other specified places as the place of occurrence of the external cause
CPT/HCPCS: 36415; 36556; 71045; 76937; 77001; 80048; 80053; 80202; 81025; 82962; 83036; 83605; 83735; 84100; 84484; 84703; 85025; 86705; 86709; 86803; 87070; 87075; 87077; 87186; 87340; 87426; 88304; 93005; 93971; 99285; C1752; C1887; C9803; J1100; J1644; J1815; J2185; J2250; J2405; J2704; J3010; J3370; J3490; J7050